=== PATIENT | female | born 1935 | race Caucasian/White ===

== ENCOUNTER 2019-06-04 11:21 | Inpatient (IN) | payer MEDICARE ==
[~2019-06-04] VITALS: Ht 167.6 cm; Wt 91.5 kg
[2019-06-04 11:32] VITALS: BP 119/75
[2019-06-04 12:17] LABS: ABSOLUTE BASOPHILS 0.1 thou/uL (0.0-0.2); ABSOLUTE LYMPHOCYTES 0.6 thou/uL (0.8-5.3); ABSOLUTE MONOCYTES 0.7 thou/uL (0.0-1.2); ABSOLUTE NEUTROPHILS 5.6 thou/uL (1.6-8.1); BASOPHILS 0.9 %; EOSINOPHILS 0.1 %; HEMATOCRIT 34.2 % (37.0-47.0); HEMOGLOBIN 11.1 gm/dL (12.0-15.0); LYMPHOCYTES 8.3 %; MCHC 32.3 g/dL (28.0-37.0); MCV 80.3 fL (80.0-100.0); MONOCYTES 10.2 %; NUCLEATED RBCS 0 /100WBC; PLATELET COUNT* 171 thou/uL (150-400); POLYS 80.5 %; RBC 4.26 mil/uL (4.20-5.00); RDW-CV 15.5 % (10.5-14.5); WBC 6.9 thou/uL (4.0-11.0)
[2019-06-04 12:22] LABS: CALCIUM 9.5 mg/dL (8.5-10.1); CREATININE 1.4 mg/dL (0.6-1.3); POTASSIUM 3.7 mmol/L (3.5-5.1)
[2019-06-04 12:32] LABS: ALBUMIN 3.5 g/dL (3.4-5.0); TOTAL BILIRUBIN 0.8 mg/dL (<0.1-1.0); TOTAL PROTEIN 6.8 g/dL (6.4-8.2)
[2019-06-04 12:35] LABS: APTT 26.2 Seconds (25.0-31.3); INR 1.2; PROTIME 12.7 Seconds (9.20-11.50)
[2019-06-04 16:05] VITALS: BP 125/81
[2019-06-04 17:31] VITALS: BP 125/92
[2019-06-05] VITALS (7 sets, daily range): BP systolic 114–150; BP diastolic 55–76
[2019-06-05 08:01] LABS: HEMATOCRIT 34.4 % (37.0-47.0); HEMOGLOBIN 10.9 gm/dL (12.0-15.0); MCH 25.3 pg (26.0-34.0); MCHC 31.6 g/dL (28.0-37.0); MCV 79.8 fL (80.0-100.0); MPV 9.3 fl. (7.2-11.1); RBC 4.31 mil/uL (4.20-5.00); RDW-CV 15.6 % (10.5-14.5); WBC 7.6 thou/uL (4.0-11.0)
[2019-06-05 08:09] LABS: CALCIUM 9.4 mg/dL (8.5-10.1); CREATININE 1.3 mg/dL (0.6-1.3); POTASSIUM 3.8 mmol/L (3.5-5.1)
--- NOTE | 2019-06-05 08:43 | EKG ---
[place] [address] ELECTROCARDIOGRAM REPORT Name: DOTTIE CROWLEY Room: [address] IN .R.#: [id number] Admission: 06/04/19 Attend Phys: Lakisha Mendoza Discharge: 06/07/19 Date of : 39 Report #: [id number] THIS REPORT FOR: //name// [facility] ED Test Date: 2019-06-04 Test Time: 11:37:57 Pat Name: DOTTIE CROWLEY Department: Room: [facility] Gender: F Leather Sponger: alvaro : 1935 Requested By: Itz Velasquez Order Number: [id number] MD: Rich Osborne Measurements Intervals [place] Rate: 182 P: MD: QRS: 57 QRSD: 71 T: 220 QT: 256 QTc: 446 Interpretive Statements Atrial fibrillation with rapid V-rate Low voltage, precordial leads Anteroseptal infarct, old Minimal ST depression Nonspecific T abnormalities, lateral leads Baseline wander in lead(s) V4,V6 No previous ECG available for comparison Electronically Signed On 06-05-2019 8:42:58 CDT by Rich Osborne [email or web address] <ELECTRONICALLY SIGNED> By: Rich Osborne MD, FACC 06/05/19 0842 1137 1137 Rich Osborne MD, FACC /EPI
[2019-06-05 09:26] LABS: CHOLESTEROL 127 mg/dL (<200); HDL CHOLESTEROL 39 mg/dL (>40); LDL CHOLESTEROL 79 mg/dL (<100); TC:HDL 3.3 Ratio (Not establshd); TRIGLYCERIDE 45 mg/dL (<150); VLDL 9 mg/dL (<40)
[2019-06-05 09:27] LABS: SERUM ASSESSMENT Clear
--- NOTE | 2019-06-05 15:03 | 2DMMODE ---
[place] [address] 2 D/M-MODE ECHOCARDIOGRAM Name: DOTTIE CROWLEY Room: [address] IN [facility]#: [id number] Admission: 06/04/19 Attend Phys: Lakisha neal Sa Discharge: 06/07/19 Date of : 39 Date of Service: 06/05/19 1503 Report #: [id number] THIS REPORT FOR: //name// APPROVED REPORT Study performed: 06/05/2019 11:12:26 EXAM: Comprehensive 2D, Doppler, and color-flow Echocardiogram Patient Location: In-Patient Room #: [facility] Status: routine BSA: 2.01 HR: 78 bpm BP: 133/72 mmHg Rhythm: NSR Other Information Study Quality: Good Indications Atrial Fibrillation Dyspnea 2D Dimensions IVSd: 8.50 (7-11mm) LVOT Diam: 17.66 (18-24mm) LVDd: 44.62 mm PWd: 8.05 (7-11mm) Ascending Ao: 32.97 (22-36mm) LVDs: 32.47 (25-40mm) Aortic Root: 28.18 mm Volumes Left Atrial Volume (Systole) LA ESV Index: 49.60 mL/m2 Aortic Valve AoV Peak Edgar.: 1.80 m/s AO Peak Gr.: 12.94 mmHg LVOT Max P.12 mmHg AO Mean Gr.: 6.38 mmHg LVOT Mean P.29 mmHg LVOT Max V: 1.33 m/s AO V2 VTI: 30.55 cm LVOT Mean V: 0.83 m/s UZMA (VTI): 1.79 cm2 LVOT V1 VTI: 22.30 cm TDI Medial E' Edgar.: 0.09 m/s Lateral E' Edgar.: 0.16 m/[place] [address] 2 D/M-MODE ECHOCARDIOGRAM Name: DOTTIE CROWLEY Room: [address] IN [facility].#: [id number] Admission: 06/04/19 Attend Phys: Lakisha neal Sa Discharge: 06/07/19 Date of : 39 Date of Service: 06/05/19 1503 Report #: [id number] Pulmonary Valve PV Peak Edgar.: 1.01 m/s PV Peak Gr.: 4.04 mmHg Tricuspid Valve RAP Estimate: 15.00 mmHg TR Peak Gr.: 27.54 mmHg RVSP: 42.00 mmHg PA Pressure: 42.00 mmHg Left Ventricle The left ventricle is normal size. There is normal LV segmental wall motion. There is normal left ventricular wall thickness. Left ventricular systolic function is normal. LVEF is 55-60%. This study is not technically sufficient to allow evaluation of the LV diastolic function due to atrial fibrillation. Right Ventricle Right ventricle is mildly dilated. The right ventricular systolic function is normal. Atria Left atrium is severely dilated. Right atrium is severely dilated. Aortic Valve The aortic valve is normal in structure. No aortic regurgitation is present. There is no aortic valvular stenosis. Mitral Valve There is mitral annular calcification. Mild mitral regurgitation. No evidence of mitral valve stenosis. Tricuspid Valve The tricuspid valve is normal in structure. Moderate tricuspid regurgitation. Moderate pulmonary hypertension. The RVSP is 40-45 mmHg. Pulmonic Valve The pulmonary valve is normal in structure. Trace pulmonic regurgitation. Great Vessels The aortic root is normal in size. IVC is dilated and collapses <50% with [place] [address] 2 D/M-MODE ECHOCARDIOGRAM Name: DOTTIE CROWLEY Room: [address]#: [id number] Admission: 06/04/19 Attend Phys: Lakisha clement los Sa Discharge: 06/07/19 Date of : 39 Date of Service: 06/05/19 1503 Report #: [id number] There is no pericardial effusion. Left pleural effusion. <Conclusion> The left ventricle is normal size. There is normal left ventricular wall thickness. Left ventricular systolic function is normal. LVEF is 55-60%. Right ventricle is mildly dilated. Left atrium is severely dilated. Right atrium is severely dilated. Mild mitral regurgitation. Moderate tricuspid regurgitation. Moderate pulmonary hypertension. The RVSP is 40-45 mmHg. IVC is dilated and collapses <50% with inspiration. Left pleural effusion. <ELECTRONICALLY SIGNED> By: Rich Osborne MD, FACC 06/05/19 1503 1503 1503 Rich Osborne MD, FACC /INF
[2019-06-06] VITALS (7 sets, daily range): BP systolic 107–150; BP diastolic 46–84
[2019-06-06 05:51] LABS: CALCIUM 8.4 mg/dL (8.5-10.1); CREATININE 1.2 mg/dL (0.6-1.3); POTASSIUM 3.7 mmol/L (3.5-5.1)
[2019-06-06 06:29] LABS: INR 1.2; PROTIME 12.1 Seconds (9.20-11.50)
--- NOTE | 2019-06-06 15:00 | EKG ---
[place] [address] ELECTROCARDIOGRAM REPORT Name: DOTTIE CROWLEY Room: [address] IN .R.#: [id number] Admission: 06/04/19 Attend Phys: Lakisha Mendoza Discharge: 06/07/19 Date of : 39 Report #: [id number] THIS REPORT FOR: //name// [facility] Test Date: 2019-06-05 Test Time: 17:32:19 Pat Name: DOTTIE CROWLEY Department: Room: [address] Gender: F Curriculum Consultant: ROGER : 1935 Requested By: Tamica Seals Order Number: [id number] Wm MD: Fermin Morales Measurements Intervals [place] Rate: 82 P: [place]: QRS: 78 QRSD: 81 T: 220 QT: 459 QTc: 536 Interpretive Statements Atrial fibrillation Low voltage, precordial leads Nonspecific T abnormalities, inferior leads Prolonged QT interval Compared to ECG 06/04/2019 11:37:57 Prolonged QT interval now present Myocardial infarct finding no longer present ST (T wave) deviation no longer present T-wave abnormality still present Electronically Signed On 06-06-2019 15:00:31 CDT by Fermin Morales [email or web address] <ELECTRONICALLY SIGNED> By: Fermin Morales MD, FACC 06/06/19 1500 31 173 Fermin Morales MD, FACC /EPI
--- NOTE | 2019-06-06 15:14 | EKG ---
[place] [address] ELECTROCARDIOGRAM REPORT Name: DOTTIE CROWLEY Room: [address] IN M.R.#: [id number] Admission: 06/04/19 Attend Phys: Lakisha Mendoza Discharge: 06/07/19 Date of : 39 Report #: [id number] THIS REPORT FOR: //name// [facility] Test Date: 2019-06-06 Test Time: 13:32:19 Pat Name: DOTTIE CROWLEY Department: Room: [address] Gender: F Umbrella Cutter: : 1935 Requested By: Tamica Seals Order Number: [id number] Reading MD: Fermin Morales Measurements Intervals [place] Rate: 92 P: [place]: QRS: 59 QRSD: 59 T: 242 QT: 413 QTc: 511 Interpretive Statements Atrial fibrillation Borderline T abnormalities, diffuse leads Prolonged QT interval Compared to ECG 06/04/2019 11:37:57 Prolonged QT interval now present Myocardial infarct finding no longer present ST (T wave) deviation no longer present T-wave abnormality still present Electronically Signed On 06-06-2019 15:14:08 CDT by Fermin Morales [email or web address] <ELECTRONICALLY SIGNED> By: Fermin Morales MD, FACC 06/06/19 1514 1332 1332 Fermin Morales MD, FACC /EPI
[2019-06-07 00:30] VITALS: BP 137/93
[2019-06-07 04:28] VITALS: BP 136/69
[2019-06-07 05:16] LABS: HEMATOCRIT 31.4 % (37.0-47.0); HEMOGLOBIN 9.8 gm/dL (12.0-15.0); MCHC 31.1 g/dL (28.0-37.0); MCV 80.4 fL (80.0-100.0); MPV 9.2 fl. (7.2-11.1); RBC 3.9 mil/uL (4.20-5.00); RDW-CV 15.8 % (10.5-14.5); WBC 6.9 thou/uL (4.0-11.0)
[2019-06-07 05:29] LABS: CALCIUM 8.7 mg/dL (8.5-10.1); POTASSIUM 3.4 mmol/L (3.5-5.1)
[2019-06-07 08:00] VITALS: BP 115/79
[2019-06-07] MEDS ORDERED: DILTIAZEM 24HR180 M1 PO (10:32)
[2019-06-07] MEDS ORDERED: LASIX 40 MG TAB40 M1 PO (10:32)
[2019-06-07] MEDS ORDERED: POTASSIUM CHLORIDE 20 MEQ PO (10:32)
[2019-06-07] MEDS ORDERED: SORINE 80 MG TA80 M1 PO (10:32)
[2019-06-07] MEDS ORDERED: ELIQUIS5 MG PO (10:32)
[2019-06-07 12:16] VITALS: BP 135/76
[2019-06-07] MEDS ORDERED: K-DUR 20 MEQ T20 MEQ PO (15:40)
[2019-06-07 15:52] VITALS: BP 142/79
--- NOTE | 2019-06-07 16:58 | EKG ---
[place] [address] ELECTROCARDIOGRAM REPORT Name: DOTTIE CROWLEY Room: [address] IN .R.#: [id number] Admission: 06/04/19 Attend Phys: Lakisha Mendoza Discharge: 06/07/19 Date of : 39 Report #: [id number] THIS REPORT FOR: //name// [facility] Test Date: 2019-06-07 Test Time: 11:04:00 Pat Name: DOTTIE CROWLEY Department: Room: [address] Gender: F Foxpro Developer: : 1935 Requested By: Tamica Seals Order Number: [id number] Wm MD: Rich Osborne Measurements Intervals [place] Rate: 90 P: ID: QRS: 98 QRSD: 80 T: 256 QT: 427 QTc: 523 Interpretive Statements Atrial fibrillation Right axis deviation Anteroseptal infarct, old Borderline repolarization abnormality Prolonged QT interval Compared to ECG 06/06/2019 13:32:19 Right-axis deviation now present Myocardial infarct finding now present T-wave abnormality no longer present Electronically Signed On 06-07-2019 16:58:13 CDT by Rich Osborne [email or web address] <ELECTRONICALLY SIGNED> By: Rich Osborne MD, FACC 06/07/19 1658 1104 1104 Rich Osborne MD, FACC /EPI
== END 2019-06-07 16:43 | disposition home health service (06) | DRG 175 ==
LOC: EDBD 11:21 → M.ERS 11:21 → M.2W 13:00 → M.TBA-ER 13:00 → M.2W 18:26
PROVIDERS: Family Medicine; Internal Medicine; Registered Nurse; ADMIT Family Medicine
DX: I26.99 Other pulmonary embolism without acute cor pulmonale (principal); R65.11 Systemic inflammatory response syndrome (SIRS) of non-infectious origin with acute organ dysfunction; I50.33 Acute on chronic diastolic (congestive) heart failure; N17.0 Acute kidney failure with tubular necrosis; J96.01 Acute respiratory failure with hypoxia; D68.59 Other primary thrombophilia; I48.91 Unspecified atrial fibrillation; E07.9 Disorder of thyroid, unspecified; E66.9 Obesity, unspecified; Z68.32 Body mass index [BMI] 32.0-32.9, adult; Z79.899 Other long term (current) drug therapy

== ENCOUNTER 2019-09-13 16:18 | Inpatient (IN) | payer OTHER ==
[~2019-09-13] VITALS: Ht 170.2 cm; Wt 73.9 kg
--- NOTE | ~2019-09-13 | PROC ---
[address] [address] PROCEDURE REPORT Name: DOTTIE CROWLEY Room: [address] IN M.R.#: [id number] Admission: 09/13/19 Attend Phys: Claudy Zavala Discharge: 09/18/19 Date of : 39 Report #: [id number] THIS REPORT FOR: //name// cc: Carla Garsia Maggie M. DO ~ THIS REPORT FOR: //name// For GI report, please see the Provation report in Perceptive 7 content. By: [facility]2Medical Records Staff [facility] /HORACIO
--- NOTE | ~2019-09-13 | CON ---
[address] [address] CONSULTATION Name: DOTTIE CROWLEY Room: [address] IN .R.#: [id number] Admission: 09/13/19 Attend Phys: Claudy Zavala Discharge: Date of : 39 Report #: [id number] THIS REPORT FOR: //name// cc: Carla Garsai Maggie M. DO ~ THIS REPORT FOR: //name// CC: CARLA Reyes DICTATED BY: Vera Ceja TOWER HOIST OPERATOR DATE OF SERVICE: 09/14/2019 Please note at the time of this dictation, the patient was seen and physically examined by myself. REASON FOR CONSULTATION: Acute anemia. HISTORY OF PRESENT ILLNESS: This is an 83-year-old female who presented to the Emergency Room yesterday morning with chief complaints of having some midsternal, nonradiating chest pain that started yesterday morning. At the time that she was seen this morning, she denies any chest discomfort or any abdominal pain at this time. The patient states she has been experiencing some nausea, especially in the a.m. upon arising and this has been ongoing for some time. She states she has had no vomiting or any decrease in her appetite. She states her bowels move daily, soft and formed, and she has not noticed any black stools. The patient has never had any upper or lower scopes done. The patient recently was hospitalized in May for increased shortness of breath. She was found to have a PE on the right and was in rapid atrial fib. We will get Cardiology okay prior to proceeding. The patient also has been on Eliquis since that time, along was taking two Aleve daily, which she had been taking prior to all of that for some time. ALLERGIES: No known drug allergies. MEDICATIONS FROM HOME: Eliquis, sotalol, diltiazem, and Lasix. PAST MEDICAL HISTORY: Significant for AFib, hypertension, and hyperlipidemia. PAST SURGICAL HISTORY: Negative. FAMILY HISTORY: Negative. SOCIAL HISTORY: Denies any alcohol, tobacco, or illegal drug use. REVIEW OF SYSTEMS: Twelve-point review of systems is essentially negative except what is mentioned in the HPI. PHYSICAL EXAMINATION: VITAL SIGNS: Temperature 36.1, pulse 116, respirations 16, blood pressure 116/62. HEART: Regular rate and rhythm. LUNGS: Diminished, but clear. ABDOMEN: Soft, positive bowel sounds in all 4 quadrants with no masses or tenderness noted. LABORATORY DATA: Hemoglobin on admission was 5.3, she is 7.7 after 2 units of blood, white count 5.3, platelets 250. BUN is 38, creatinine is 1.5 with a GFR of 33. PT is 13.6, INR 1.3. TIBC is 378, percentage sat is 8, ferritin was 10, and her BNP was 3482. IMPRESSION: 1. Wqozo-nt-bkkxwos anemia. 2. Nausea. 3. Nonsteroidal anti-inflammatory drug use. 4. Two Aleve daily for years. 5. Chest pain, resolved. 6. Anticoagulant therapy, Eliquis. 7. Atrial fibrillation and pulmonary embolism in 05/2019. PLAN: 1. EGD today with Dr. Lomeli. 2. We will get approval from Cardiology LATASHA. 3. Protonix drip. 4. CBC and CMP in the a.m. 5. Further recommendations will be made after the procedure has been performed. 6. The patient has never had a screening colon. If above is negative, we will likely need a colonoscopy. Thank you for allowing us to participate in this patient's care. Please do not hesitate to call with any questions in regard to this consult. By: 1028 [id number] Lomeli MD /cathleen
--- NOTE | ~2019-09-13 | EKG ---
[place] [address] ELECTROCARDIOGRAM REPORT Name: DOTTIE CROWLEY Room: [address] IN [facility]#: [id number] Admission: 09/13/19 Attend Phys: Moises Jaramillo Discharge: Date of : 39 Date of Service: 09/13/191621 Report #: [id number] THIS REPORT FOR: cc: Carla Garsia Maggie M. DO Epiphany, Epiphany MD ~ THIS REPORT FOR: //name// [facility] ED Test Date: 2019-09-13 Test Time: 16:22:21 Pat Name: DOTTIE CROWLEY Department: Room: [facility] Gender: F Gis Analyst: SMITH : 1935 Requested By: Tim Bowman Order Number: [id number] MD: Measurements Intervals [place] Rate: 115 P: [place]: QRS: 47 QRSD: 62 T: QT: 364 QTc: 504 Interpretive Statements Atrial fibrillation Probable anterior infarct, age indeterminate Prolonged QT interval No previous ECG available for comparison [email or web address] By: 21 21 Epiphany Epiphany, [place] /CARITO
[~2019-09-13 16:18] MED LIST: DILTIAZEM 24HR180 M1 PO; ELIQUIS5 MG PO; K-DUR 20 MEQ T20 MEQ PO; LASIX 40 MG TAB40 M1 PO; POTASSIUM CHLORIDE 20 MEQ PO; SORINE 80 MG TA80 M1 PO
[2019-09-13 16:24] VITALS: BP 102/60
[2019-09-13 17:10] LABS: ABSOLUTE BASOPHILS 0.1 thou/uL (0.0-0.2); ABSOLUTE EOSINOPHILS 0.1 thou/uL (0.0-0.7); ABSOLUTE MONOCYTES 0.9 thou/uL (0.0-1.2); ABSOLUTE NEUTROPHILS 3.3 thou/uL (1.6-8.1); BASOPHILS 1.9 %; EOSINOPHILS 1.8 %; LYMPHOCYTES 17.9 %; MCH 22.6 pg (26.0-34.0); MCHC 30.8 g/dL (28.0-37.0); MCV 73.3 fL (80.0-100.0); MONOCYTES 16.6 %; MPV 8.1 fl. (7.2-11.1); NUCLEATED RBCS 0 /100WBC; PLATELET COUNT* 250 thou/uL (150-400); POLYS 61.8 %; RBC 2.34 mil/uL (4.20-5.00); RDW-CV 17.4 % (10.5-14.5); WBC 5.3 thou/uL (4.0-11.0)
[2019-09-13 17:18] LABS: APTT 27.6 Seconds (25.0-31.3); INR 1.3; PROTIME 13.6 Seconds (9.20-11.50)
[2019-09-13 17:21] LABS: HEMATOCRIT 17.1 % (37.0-47.0); HEMOGLOBIN 5.3 gm/dL (12.0-15.0)
[2019-09-13 17:22] LABS: CALCIUM 8.4 mg/dL (8.5-10.1); CREATININE 1.5 mg/dL (0.6-1.3); POTASSIUM 4.2 mmol/L (3.5-5.1)
[2019-09-13 17:32] LABS: ALBUMIN 3.5 g/dL (3.4-5.0); MAGNESIUM 2.4 mg/dL (1.8-2.4); TOTAL BILIRUBIN 0.5 mg/dL (<0.1-1.0); TOTAL PROTEIN 6.5 g/dL (6.4-8.2)
[2019-09-13 17:51] LABS: PLATELET ESTIMATE ADEQUATE
[2019-09-13 17:52] LABS: ANISOCYTOSIS 1+; HYPOCHROMASIA 1+; POIKILOCYTOSIS 1+
[2019-09-13 18:49] VITALS: BP 105/66
[2019-09-13 20:30] VITALS: BP 116/62
[2019-09-13 21:32] VITALS: BP 103/61; BP 106/64; BP 108/65; BP 99/52
[2019-09-14 01:56] LABS: HEMATOCRIT 18.9 % (37.0-47.0)
[2019-09-14 03:11] VITALS: BP 104/64; BP 105/66; BP 120/62; BP 125/67
[2019-09-14 08:00] VITALS: BP 123/74
[2019-09-14 09:41] LABS: HEMATOCRIT 22.6 % (37.0-47.0); HEMOGLOBIN 7.7 gm/dL (12.0-15.0)
[2019-09-14 16:28] VITALS: BP 123/72
--- NOTE | 2019-09-14 16:46 | CON ---
[address] [address] CONSULTATION Name: DOTTIE CROWLEY Room: [address] IN M.R.#: [id number] Admission: 09/13/19 Attend Phys: Claudy Zavaal Discharge: Date of : 39 Report #: [id number] THIS REPORT FOR: //name// cc: Carla Garsia Maggie M. DO ~ THIS REPORT FOR: //name// CC: Dr. Minerva Jaramillo DATE OF SERVICE: 09/14/2019 CARDIOLOGY CONSULTATION HISTORY OF PRESENT ILLNESS: The patient is an 83-year-old single white female who I was asked to see in the hospital today because of atrial fibrillation. The patient presented here in May with shortness of breath and leg swelling. She was seen by my nurse practitioner, Tamica Seals. She was noted to be hypoxic. Chest x-ray showed vascular congestion. She was found to be in atrial fibrillation. It was felt that she had diastolic heart failure since her ejection fraction was normal by echocardiogram. She was noted to have evidence of a pulmonary embolus. She was placed on sotalol, but did not convert to sinus rhythm. She was placed on diltiazem for rate control. She was eventually discharged in May to [facility]. Her discharge diagnoses included pulmonary embolus and atrial fibrillation. She was noted to have a thyroid mass. DVT was ruled out by venous duplex scan. She was at [facility] for a period of time and then discharged home. According to the son, she stays fairly active. She has been taking her medications. She was brought back to the Emergency Room yesterday by ambulance. She complained of discomfort in her chest. It is not related to exertion or meals. No radiation of the pain. No diaphoresis. She denied any bleeding. I was asked to see her for further evaluation and treatment. She denied any shortness of breath. She has felt irregular heartbeat, occasional lightheadedness. CURRENT MEDICATIONS: At home included Eliquis, sotalol, diltiazem, Lasix, and potassium. ALLERGIES: She had no known drug allergies. FAMILY HISTORY: Her grandfather had a heart attack. SOCIAL HISTORY: , lives with son in [place]. No smoking or alcohol abuse. REVIEW OF SYSTEMS: She has had no history of stroke. She is very hard of hearing. No history of asthma, peptic ulcer disease, bleeding, liver disease, kidney disease, cancer or psychiatric illness. PHYSICAL EXAMINATION: GENERAL: Revealed an elderly frail appearing female, lying in bed. She appeared in no distress. VITAL SIGNS: Blood pressure was 110/60, pulse is 110. She is afebrile. HEENT: She was anicteric. Conjunctivae pink. Mucous membranes appear dry. NECK: Veins are nondistended. CHEST: Clear to auscultation. CARDIOVASCULAR: Irregular, tachycardia. ABDOMEN: Soft. EXTREMITIES: Had 1+ pitting edema up to mid tibial area. Dorsalis pedis pulse 1+ bilaterally. SKIN: Cool and dry. NEUROLOGIC: Nonfocal. RADIOLOGICAL DATA: Her ECG showed atrial fibrillation, rapid ventricular response rate, nonspecific T-wave changes. Her workup, she had an echocardiogram last May that showed a normal ejection fraction of 60%, biatrial enlargement, right ventricular appeared dilated, moderate tricuspid insufficiency, moderate pulmonary hypertension. Her chest x-ray done yesterday showed cardiomegaly, clear lung gonzalez, some atelectasis. LABORATORY DATA: Sodium 141, BUN 38, creatinine 1.5. Liver function studies were normal. Troponin 0.06. BNP 3482. Her TSH 2.3, ferritin 10, percent saturation of 8. Her hemoglobin was 7.7, it was 11 in May. IMPRESSION AND RECOMMENDATIONS: 1. Persistent atrial fibrillation. I would discontinue sotalol and increase diltiazem to control the ventricular response rate. I would hold Eliquis at this time because of anemia. 2. Iron deficiency anemia. Agree with need for endoscopy. The patient appears to have no cardiac contraindication to endoscopy at this time. 3. Chest pain. No evidence of acute myocardial infarction. Recommend no further cardiac evaluation at this time. 4. Chronic kidney disease. 5. Degenerative joint disease. 6. Lower extremity edema. Suspect venous insufficiency. The patient is on Lasix. <ELECTRONICALLY SIGNED> By: Luigi Napoles MD, FACC 09/14/19 1646 1056 1248Dafabián Napoles MD, FACC /nt
[2019-09-14 18:40] LABS: HEMOGLOBIN 7.9 gm/dL (12.0-15.0); MCH 24.7 pg (26.0-34.0); MCHC 31.6 g/dL (28.0-37.0); MCV 78.1 fL (80.0-100.0); MPV 8.8 fl. (7.2-11.1); RBC 3.2 mil/uL (4.20-5.00); RDW-CV 18.3 % (10.5-14.5); WBC 6.1 thou/uL (4.0-11.0)
[2019-09-14 20:42] VITALS: BP 118/55
[2019-09-15] VITALS: BP 126/66
[2019-09-15 04:00] VITALS: BP 123/57
[2019-09-15 06:18] LABS: ALBUMIN 3.3 g/dL (3.4-5.0); CALCIUM 8.3 mg/dL (8.5-10.1); CREATININE 1.4 mg/dL (0.6-1.3); MAGNESIUM 2.4 mg/dL (1.8-2.4); POTASSIUM 3.9 mmol/L (3.5-5.1); TOTAL BILIRUBIN 0.8 mg/dL (<0.1-1.0); TOTAL PROTEIN 6.4 g/dL (6.4-8.2)
[2019-09-15 07:32] LABS: HEMATOCRIT 25.9 % (37.0-47.0); HEMOGLOBIN 8.2 gm/dL (12.0-15.0); MCHC 31.7 g/dL (28.0-37.0); MCV 78.9 fL (80.0-100.0); MPV 8.8 fl. (7.2-11.1); RBC 3.28 mil/uL (4.20-5.00); RDW-CV 18.5 % (10.5-14.5); WBC 8.8 thou/uL (4.0-11.0)
[2019-09-15 08:00] VITALS: BP 123/72
[2019-09-15 12:00] VITALS: BP 105/57
[2019-09-15 16:00] VITALS: BP 104/54
[2019-09-15 20:10] VITALS: BP 110/63
[2019-09-16] VITALS (7 sets, daily range): BP systolic 104–127; BP diastolic 60–78
[2019-09-16 06:01] LABS: HEMATOCRIT 21.5 % (37.0-47.0)
[2019-09-16 06:32] LABS: HEMOGLOBIN 6.9 gm/dL (12.0-15.0)
[2019-09-16 16:28] LABS: HEMATOCRIT 25.5 % (37.0-47.0); HEMOGLOBIN 8.3 gm/dL (12.0-15.0)
[2019-09-17] VITALS (7 sets, daily range): BP systolic 124–144; BP diastolic 53–77
[2019-09-17 07:05] LABS: HEMATOCRIT 23.9 % (37.0-47.0); HEMOGLOBIN 7.7 gm/dL (12.0-15.0); MCH 25.2 pg (26.0-34.0); MCHC 32.4 g/dL (28.0-37.0); MPV 8.2 fl. (7.2-11.1); RBC 3.06 mil/uL (4.20-5.00); RDW-CV 18.5 % (10.5-14.5); WBC 5.8 thou/uL (4.0-11.0)
[2019-09-17 07:13] LABS: CALCIUM 8.2 mg/dL (8.5-10.1); CREATININE 1.1 mg/dL (0.6-1.3); MAGNESIUM 2.3 mg/dL (1.8-2.4); POTASSIUM 3.9 mmol/L (3.5-5.1)
[2019-09-18 04:18] VITALS: BP 111/57
[2019-09-18 07:30] VITALS: BP 127/67
[2019-09-18 07:33] LABS: HEMATOCRIT 22.5 % (37.0-47.0); HEMOGLOBIN 7.3 gm/dL (12.0-15.0); MCH 25.5 pg (26.0-34.0); MCHC 32.3 g/dL (28.0-37.0); MCV 78.9 fL (80.0-100.0); MPV 8.1 fl. (7.2-11.1); RBC 2.86 mil/uL (4.20-5.00); RDW-CV 19.3 % (10.5-14.5); WBC 4.8 thou/uL (4.0-11.0)
[2019-09-18 07:44] LABS: POTASSIUM 3.8 mmol/L (3.5-5.1)
[2019-09-18] MEDS ORDERED: DIGOXIN125 MCG PO ×2 (11:35→12:39)
[2019-09-18] MEDS ORDERED: FUROSEMIDE 40 M40 MG PO (11:38)
[2019-09-18 11:52] VITALS: BP 127/67
[2019-09-18 12:27] VITALS: BP 127/67
[2019-09-18] MEDS ORDERED: CEFDINIR300 MG PO (12:39)
[2019-09-18] MEDS ORDERED: CARDIZEM CD 18180 M3 PO (13:00)
[2019-09-18] MEDS ORDERED: DILTIAZEM ER240 MG PO (13:05)
[2019-09-18 13:49] VITALS: BP 127/67
--- NOTE | 2019-09-18 16:07 | PATH ---
[facility] [address] [place] [address] PATHOLOGY RPT PROCEDURE Name: SULEMA CROWLEY Room: [address] IN M.R.#: [id number] Admission: 09/13/19 Date of : 39 Discharge: 09/18/19 Report #: [id number] Path Case #: [id number] [facility] Accession Number: [id number] . 01 Material submitted: . esophagus - ESOPHAGEAL BIOPSY . 01 Clinical history: . None provided. . 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 See comment. (MIRA:maria; 09/17/2019) R 09/18/2019 1530 Local . 02 Comment: Properly controlled GMS stain performed on A1 is positive for fungal organisms, compatible with Olivia species and seen within fragmenting squamouis epithelium. (MIRA:maria; 09/17/2019) . 02 Electronically signed: . Alexis Soriano MD, Pathologist NPI- [id number] . 01 Gross description: . Received in formalin labeled "Sulema Crowley, esophageal biopsy rule out Olivia" is a 1.0 x 0.2 x 0.1 cm aggregate of salcido-brown soft tissue fragments. The specimen is submitted entirely in A1. [place] 09/15/2019[place] [facility] 09/15/2019 0946 Local . 02 Pathologist provided ICD-10: K20.9 . 02 CPT . 713982, 420350 Specimen Comment: A courtesy copy of this report has been sent to [phone] Specimen Comment: [phone], Specimen Comment: Report sent to , and Performed at: [address] [id number] MD Haja Albarado MD Phone: [phone] Performed at: [address] [place] [address] PATHOLOGY RPT PROCEDURE Name: SULEMA CROWLEY Room: [address] IN M.R.#: [id number] Admission: 09/13/19 Date of : 39 Discharge: 09/18/19 Report #: [id number] Path Case #: [id number] [address] KERA Nuno [id number] MD Alexis Soriano MD Phone: [phone]
== END 2019-09-18 15:04 | disposition home health service (06) | DRG 377 ==
LOC: M.ERS 16:18 → M.2W 17:54 → M.TBA-ER 17:54 → M.2W 19:16
PROVIDERS: Emergency Medicine Emergency Medical Services; Family Medicine; Internal Medicine; Internal Medicine Cardiovascular Disease; ADMIT Internal Medicine
DX: K31.811 Angiodysplasia of stomach and duodenum with bleeding (principal); N17.0 Acute kidney failure with tubular necrosis; I50.30 Unspecified diastolic (congestive) heart failure; I13.0 Hypertensive heart and chronic kidney disease with heart failure and stage 1 through stage 4 chronic kidney disease, or unspecified chronic kidney disease; I48.19 Other persistent atrial fibrillation; D50.9 Iron deficiency anemia, unspecified; E78.5 Hyperlipidemia, unspecified; N18.9 Chronic kidney disease, unspecified; M19.90 Unspecified osteoarthritis, unspecified site; I87.8 Other specified disorders of veins; K44.9 Diaphragmatic hernia without obstruction or gangrene; Z86.711 Personal history of pulmonary embolism; Z79.899 Other long term (current) drug therapy; Z79.1 Long term (current) use of non-steroidal anti-inflammatories (NSAID); Z79.01 Long term (current) use of anticoagulants; Z82.49 Family history of ischemic heart disease and other diseases of the circulatory system

== ENCOUNTER 2021-04-17 23:15 | Inpatient (IN) | payer OTHER ==
[~2021-04-17] VITALS: Ht 162.6 cm; Wt 65.4 kg
[~2021-04-17 23:15] MED LIST changes: +CARDIZEM CD 18180 M3 PO; +CEFDINIR300 MG PO; +DIGOXIN125 MCG PO; +DILTIAZEM ER240 MG PO; +FUROSEMIDE 40 M40 MG PO
[2021-04-17 23:21] VITALS: BP 120/87
[2021-04-17 23:42] LABS: ABSOLUTE LYMPHOCYTES 0.6 thou/uL (0.8-5.3); ABSOLUTE MONOCYTES 1.3 thou/uL (0.0-1.2); ABSOLUTE NEUTROPHILS 10.4 thou/uL (1.6-8.1); BASOPHILS 0.2 %; HEMATOCRIT 45.7 % (37.0-47.0); HEMOGLOBIN 14.6 gm/dL (12.0-15.0); LYMPHOCYTES 5.1 %; MCH 29.6 pg (26.0-34.0); MCV 92.3 fL (80.0-100.0); MONOCYTES 10.8 %; MPV 10.1 fl. (7.2-11.1); NUCLEATED RBCS 0 /100WBC; PLATELET COUNT* 141 thou/uL (150-400); POLYS 83.9 %; RBC 4.95 mil/uL (4.20-5.00); RDW-CV 17.5 % (10.5-14.5); WBC 12.4 thou/uL (4.0-11.0)
[2021-04-17 23:45] LABS: ANION GAP 15 mmol/L (7-16); BUN 40 mg/dL (7-18); CALCIUM 8.9 mg/dL (8.5-10.1); CHLORIDE 106 mmol/L (98-107); CO2 21 mmol/L (21-32); CREATININE 1.4 mg/dL (0.6-1.3); GLUCOSE 161 mg/dL (70-99); SODIUM 142 mmol/L (136-145)
[2021-04-17 23:54] LABS: APTT 28.3 Seconds (25.0-31.3); INR 1.4; PROTIME 14.2 Seconds (9.20-11.50)
[2021-04-17 23:56] LABS: ALBUMIN 3.6 g/dL (3.4-5.0); ALKALINE PHOSPHATASE 72 U/L (46-116); NT-PRO BRAIN NAT PEPTIDE > 35000 pg/mL (<300); SGOT 27 U/L (15-37); SGPT 35 U/L (30-65); TOTAL BILIRUBIN 1.7 mg/dL (<0.1-1.0); TOTAL PROTEIN 6.7 g/dL (6.4-8.2)
[2021-04-18] VITALS (10 sets, daily range): BP systolic 111–123; BP diastolic 53–84
--- NOTE | 2021-04-18 08:44 | NUR ---
PT ADMITTED TO ROOM 214 DURING PREP MANAGER; AFIB WITH RVR (OTHER VITALS STABLE), DROWSY, DISORIENTED TO TIME, 2LO2 NC, PIC TAKEN OF WOUND, BEDREST ORDERED. SHE IS ABLE TO COMMUNICATE HER NEEDS TO STAFF WITH SOME DIFFICULTY; SHE IS [id number], DROWSY AND A LITTLE CONFUSED. SHE HAS DENIED THE NEED FOR PAIN MEDICATION UP TO 0700 THIS MORNING. SHE HAS BEEN NPO SINCE ARRIVAL FOR CARDIOLOGY CONSULT TODAY.
--- NOTE | 2021-04-18 10:59 | NUR ---
ASSUMED PT CARE AT 0730. PT IS A&OX4, COOPERATIVE AND FRIENDLY. ASSESSMENT COMPLETED. MEDICATIONS ADMINISTERED ORDERED. NEW ORDER TO DISCHARGE PT TO HOME. PT VERBALIZES DISCHARGE ORDERS. FRIEND HERE T6O TRANSPORT PT TO HOME VIA CAR AT APPROX 1100. HEART MONITOR REMOVED AND IV'S DC'D. ALL BELONGINGS WITH PT.
--- NOTE | 2021-04-18 15:07 | NUR ---
ASSUMED PT CARE AT 0730. PT IS A&OX X3-4 AND PALA. PT IS PLEASANT, COOPERATIVE AND SLEEPY. PT WITH CHRONIC AFIB AND CARDIZEM DRIP STOPPED AT APPROX 12NOON. PT HEART RATE NOW IN THE 70-80'S. NEW MEDICATIONS ORDERED BY CARDIOLOGY AND ADMINISTERED ORDERED. PT IS RESTING OFTEN TODAY AND EASILY AROUSED. PT WITH POOR APPETITE, SUPPLEMENT OFFERED. SAFETY MEASURES IN PLACE, CALL LIGHT IN PLACE.
[2021-04-18 18:04] LABS: URINE BLOOD 1+ (Negative); URINE CLARITY CLEAR; URINE COLOR DARK YELLOW; URINE GLUCOSE-RANDOM NEGATIVE (Negative); URINE KETONES NEGATIVE (Negative); URINE LEUKOCYTES-REFLEX TRACE (Negative); URINE NITRITE-REFLEX NEGATIVE (Negative); URINE PROTEIN 1+ (Negative); URINE SPECIFIC GRAVITY >= 1.030 (1.005-1.030)
[2021-04-18 18:06] LABS: URINE BILIRUBIN 1+ (Negative)
[2021-04-18 18:07] LABS: ICTOTEST (BILI CONFIRMATORY) Negative (Negative)
[2021-04-18 18:20] LABS: BACTERIA-REFLEX 1-9 Few /HPF (None Seen); CASTS None Seen /LPF (None Seen); CRYSTALS None Seen /LPF (None Seen); MUCUS 0-3 Light strn/LPF (None Seen); SQUAMOUS 4-10 Moderate /LPF (0-3); URINE RBC 3-10 Few /HPF (0-2); URINE WBC-REFLEX 0-5 Rare /HPF (0-5)
[2021-04-19] VITALS (7 sets, daily range): BP systolic 119–148; BP diastolic 71–87
[2021-04-19 03:50] LABS: HEMATOCRIT 46.8 % (37.0-47.0); HEMOGLOBIN 14.8 gm/dL (12.0-15.0); MCH 29.7 pg (26.0-34.0); MCHC 31.7 g/dL (28.0-37.0); MCV 93.7 fL (80.0-100.0); NUCLEATED RBCS 0 /100WBC; PLATELET COUNT* 129 thou/uL (150-400); RBC 4.99 mil/uL (4.20-5.00); RDW-CV 17.8 % (10.5-14.5); WBC 10.7 thou/uL (4.0-11.0)
[2021-04-19 04:35] LABS: CALCIUM 8.3 mg/dL (8.5-10.1); CREATININE 0.7 mg/dL (0.6-1.3); POTASSIUM 4.9 mmol/L (3.5-5.1)
[2021-04-19 05:52] LABS: ABSOLUTE LYMPHOCYTES 0.3 thou/uL (0.8-5.3); ABSOLUTE MONOCYTES 0.6 thou/uL (0.0-1.2); ABSOLUTE NEUTROPHILS 9.7 thou/uL (1.6-8.1); ANISOCYTOSIS 1+; PLATELET ESTIMATE DECREASED
--- NOTE | 2021-04-19 07:53 | NUR ---
PT IS ABLE TO COMMUNICATE HER NEEDS TO STAFF WITH MINOR DIFFICULTY; SHE IS [id number] AND HAS ANXIETY. SHE HAS DENIED THE NEED FOR PAIN MEDICATION UP TO 0700 TODAY. PT USING BEDPAN, BUT IS STILL OCCASIONALLY INCONTINENT.
--- NOTE | 2021-04-19 09:07 | NUR ---
Nutrition: Pt admitted with afib/RVR. H/o CHF. Seen for pressure ulcer on sacrum. Heart healthy diet. Per RN, pt has poor appetite. RD ordered Ensure MAX protein for added nutrition. Wt: 144#. Albumin 3.6. +BM. Consider mild risk.
--- NOTE | 2021-04-19 11:35 | CON ---
[address] [address] CONSULTATION Name: CARLINEDOTTIE Luis Angel Room: [address] IN M.R.#: [id number] Admission: 04/18/21 Attend Phys: Pat Turcios MD Discharge: Date of : 39 Report #: [id number] THIS REPORT FOR: cc: Carla Garsia,Rich Perez MD FACC ~ cc: Luigi Napoles MD FACC, Carla Garsia DO DATE OF CONSULTATION: 04/18/2021 CARDIOLOGY CONSULT INDICATION: Volume overload and atrial fibrillation with rapid ventricular response rate. HISTORY OF PRESENT ILLNESS: The patient is an 85-year-old white female with history of chronic atrial fibrillation and diastolic heart failure. She presented to the hospital with increased volume overload and atrial fibrillation with rapid ventricular response rate. She denies chest pain. She denies shortness of breath. She is without other cardiac complaint at this time. Digoxin level is subtherapeutic. Primary complaint was weakness. PAST MEDICAL HISTORY: 1. Chronic atrial fibrillation. 2. History of pulmonary embolus. 3. Hypertension. 4. Chronic diastolic heart failure. 5. DJD. 6. Chronic renal insufficiency. HOME MEDICATIONS: Digoxin 0.125 mg p.o. daily, diltiazem 240 mg daily, furosemide 40 mg p.r.n., potassium chloride 20 mEq with furosemide. ALLERGIES: None known. FAMILY HISTORY: Noncontributory. SOCIAL HISTORY: The patient lives with her son in [place]. There is no alcohol or tobacco use. PHYSICAL EXAMINATION: VITAL SIGNS: Blood pressure 116/64, pulses are in the 120s and they are irregularly irregular. GENERAL: This is a thin, pleasant elderly female in no distress[place] [address] CONSULTATION Name: DOTTIE CROWLEY Room: [address]#: [id number] Admission: 04/18/21 Attend Phys: Pat Turcios MD Discharge: Date of : 37 Report #: [id number] HEENT: Head is normocephalic, atraumatic. Extraocular muscles intact. Mucous membranes moist. NECK: Shows no jugular venous distention. CHEST: Reveals clear lung gonzalez. CARDIAC: Reveals an irregularly irregular rhythm that is slightly tachycardic. I do not appreciate obvious gallop or murmur. ABDOMEN: Reveals a soft abdomen with positive bowel sounds. EXTREMITIES: Shows chronic skin changes from edema and 2+ edema to the knees bilaterally. LABORATORY DATA: Reviewed. Sodium 142, potassium 4.0, chloride 106, bicarbonate 21, BUN 40, creatinine 1.4, serum glucose 161. LFTs within normal limits. High sensitivity troponin 24. NT-proBNP greater than 35,000. Coags are fairly unremarkable. Digoxin level less than 0.2. White blood cell count 12.4, hemoglobin 14.6, platelet count 141,000. Chest x-ray shows basilar consolidation and pleural effusions. Lower extremity venous Doppler shows no evidence of deep venous thrombosis on the right side, short segment of DVT involving the left profunda vein. VQ scan was indeterminate, probability for pulmonary embolus. IMPRESSION AND RECOMMENDATIONS: 1. Atrial fibrillation with rapid ventricular response rate. Digoxin level subtherapeutic. Continue diltiazem at current dose. Bolus with IV digoxin for rate control. We would recommend anticoagulation with Eliquis. 2. Hypertension, adequately controlled. 3. Acute on chronic diastolic heart failure. Start IV Lasix daily. Follow labs in a.m. 4. Deep venous thrombosis. Recommend chronic anticoagulation. <ELECTRONICALLY SIGNED> By: Rich Osborne MD, FACC 04/19/21 1135 0936 [id number] Osborne MD, FACC /nt
--- NOTE | 2021-04-19 16:20 | NUR ---
ASSUMED PT CARE AT A 0730. PT IS ALERT AND ORIENTED X2. HEART RATE 120'-160'S. PHYSICIAN NOTIFIED AND NEW ORDERS IMPLEMENTED. HEART RATE NOW IN THE 80-90'S. PT O2 SATS IN LOWER 80'S THIS AM. NOTIFIED RESPIRATORY AND DR. ISLAS. PT NOW ON HIGH FLOW AT 14L AND MAINTAINING SATS IN THE MID 90'S. PT SON AND SISTER HERE VISITING AND INFORMED OF PT STATUS. MEDICATIONS ADMINISTERED ORDERED. SAFETY MEASURES IN PLACE. PT ATE BETTER TODAY AND HAD OUTPUT X5 CLEAR YELLOW URINE.
[2021-04-20] VITALS (7 sets, daily range): BP systolic 128–136; BP diastolic 64–88
[2021-04-20 04:30] LABS: ABSOLUTE LYMPHOCYTES 0.4 thou/uL (0.8-5.3); ABSOLUTE MONOCYTES 1.2 thou/uL (0.0-1.2); ABSOLUTE NEUTROPHILS 10.8 thou/uL (1.6-8.1); BASOPHILS 0.1 %; EOSINOPHILS 0.1 %; HEMATOCRIT 46.5 % (37.0-47.0); HEMOGLOBIN 14.8 gm/dL (12.0-15.0); LYMPHOCYTES 3.1 %; MCH 29.4 pg (26.0-34.0); MCHC 31.8 g/dL (28.0-37.0); MCV 92.7 fL (80.0-100.0); MONOCYTES 9.7 %; MPV 9.1 fl. (7.2-11.1); NUCLEATED RBCS 0 /100WBC; PLATELET COUNT* 161 thou/uL (150-400); RBC 5.01 mil/uL (4.20-5.00); RDW-CV 17.2 % (10.5-14.5); WBC 12.4 thou/uL (4.0-11.0)
[2021-04-20 04:40] LABS: ALBUMIN 2.8 g/dL (3.4-5.0); CALCIUM 8.4 mg/dL (8.5-10.1); CREATININE 0.9 mg/dL (0.6-1.3); TOTAL BILIRUBIN 1.6 mg/dL (<0.1-1.0)
[2021-04-20 04:43] LABS: POTASSIUM 3.2 mmol/L (3.5-5.1)
--- NOTE | 2021-04-20 05:22 | NUR ---
PT IS ABLE TO COMMUNICATE HER NEEDS TO STAFF WITH MINOR DIFFICULTY; SHE IS CONFUSED AT TIMES AND IS QUITE [id number]. SHE HAS DENIED THE NEED FOR PAIN MEDICATION UP TO THIS TIME. PT'S O2 NEEDS REMAIN HIGH AT THIS TIME.
[2021-04-20 13:10] LABS: BE 4.8 mmol/L (-2 to +3); PCO2 42.7 mmHg (35.0-45.0); PO2 62.4 mmHg (75.0-100.0); pH 7.455 (7.340-7.450)
--- NOTE | 2021-04-20 16:31 | NUR ---
ASSUMED PT CARE AT 0730. PT IS A&OX3 WITH SOME FORGETFULLNESS. PT AFIB AND CONTINUED THIS AM TO RUN TACHY 110-160'S. NEW ORDER RECIEVED AND PT NOW 80-90'S. O2 SATS WERE IN UPPER 80'S RESPIRATORY AND PHYSICIAN NOTIFIED. PT NOW ON HHF AT 15L AND O2 SATS. PT FED BREAKFAST AND ATE 75%. PT REQUEST BEDPAN NEEDED. MEDICATIONS ADMINISTERED ORDERED. SON HERE VISITING. PT STARTED ON ANTIBIOTIC.
[2021-04-21 04:00] VITALS: BP 129/65
[2021-04-21 04:28] LABS: CALCIUM 8.2 mg/dL (8.5-10.1); CREATININE 0.9 mg/dL (0.6-1.3); POTASSIUM 3.6 mmol/L (3.5-5.1)
[2021-04-21 09:00] VITALS: BP 126/48
--- NOTE | 2021-04-21 09:25 | NUR ---
WOUND NURSE: PATIENT WITHOUT COMPLEXT WOUND TO SACROCOCCYGEAL AREA. RECOMMEND USE OF Z-GUARD MOISTURE BARRIER PASTE. PROVIDED TO NURSE CARING FOR PATIENT. WOUND NURSE CONSULT NOT INDICATED FOR THIS PATIENT AT THIS TIME.
[2021-04-21 12:00] VITALS: BP 133/60
--- NOTE | 2021-04-21 14:53 | NUR ---
Pt on bipap. Spoke with son at bedside. Pt resides home with son and dtr. Independent, kids help as needed. Pt uses a walker for mobility. No home o2. Hx of HH. Hx of skilled at [facility]. Goal is home at dc, pending. Cards following. Therapies to see. Pulm consulted, repeat ABGs
[2021-04-21 16:00] VITALS: BP 115/49
--- NOTE | 2021-04-21 16:11 | NUR ---
THIS RN RECEIVED CARE OF THIS PT AT 0700 THIS MORNING. PT HARD TO WAKE UP UPON ASSESSMENT. VSS. PT ON THE BIPAP TO MAINTAIN OXYGEN SATURATION ABOVE 90%, LUNGS ARE DIMINISHED THROUGHOUT. PT MONITOR SHOWS AFIB, CONTROLLED WITH MEDICATION. PT HAS NORMOACTIVE BSX4, ABD S,R,NT. PT IS CONTINENT TO INCONTINENT OF BLADDER. PT NEEDS TO BE SAT UP AND FED BUT PT WILL EAT IF ENCOURAGED. PT WILL HELP WITH TURNS WHEN ENCOURAGED WELL. PT EXTREMELY WEAK. OLD IV PULLED OUT, NEW IV PLACED. WILL CONTINUE TO MONITOR AND MAKE CHANGES NEEDED.
[2021-04-21 20:00] VITALS: BP 133/59
[2021-04-22] VITALS: BP 135/66
[2021-04-22 04:00] VITALS: BP 134/66
[2021-04-22 07:15] LABS: HEMOGLOBIN 16.4 gm/dL (12.0-15.0); MCH 30.1 pg (26.0-34.0); MCHC 32.8 g/dL (28.0-37.0); MCV 91.7 fL (80.0-100.0); MPV 8.5 fl. (7.2-11.1); NUCLEATED RBCS 0 /100WBC; PLATELET COUNT* 162 thou/uL (150-400); RBC 5.45 mil/uL (4.20-5.00); RDW-CV 16.5 % (10.5-14.5); WBC 11.2 thou/uL (4.0-11.0)
[2021-04-22 07:27] LABS: ALBUMIN 2.6 g/dL (3.4-5.0); CALCIUM 8.7 mg/dL (8.5-10.1); CREATININE 0.9 mg/dL (0.6-1.3); MAGNESIUM 2.4 mg/dL (1.8-2.4); POTASSIUM 4.2 mmol/L (3.5-5.1); TOTAL BILIRUBIN 1.5 mg/dL (<0.1-1.0); TOTAL PROTEIN 6.7 g/dL (6.4-8.2)
[2021-04-22 08:00] VITALS: BP 117/69
[2021-04-22 08:35] LABS: ABSOLUTE LYMPHOCYTES 0.1 thou/uL (0.8-5.3); ABSOLUTE MONOCYTES 0.1 thou/uL (0.0-1.2); PLATELET ESTIMATE ADEQUATE
[2021-04-22 11:40] VITALS: BP 129/72
--- NOTE | 2021-04-22 11:55 | NUR ---
Therapies to see today. Pt off bipap on HF. Anticipate dc in a few days. CM following for dispo plan
[2021-04-22 16:00] VITALS: BP 136/79
[2021-04-22 16:04] LABS: BF RBC <1000 /mm3; TOTAL CELL COUNT 340 /mm3
[2021-04-22 16:23] LABS: CLARITY CLEAR; TOTAL VOLUME 1450 ml
[2021-04-22 17:11] LABS: BF LYMPHOCYTES 24 %; BF MONOCYTES 30 %; BF POLYS 46 %; SOURCE PLEURAL FLUID
[2021-04-22 17:12] LABS: BF TISSUE 25 /100 WBC
[2021-04-22 19:45] VITALS: BP 136/73
--- NOTE | 2021-04-22 22:17 | CON ---
[address] [address] CONSULTATION Name: CROWLEYDOTTIE K Room: [address] IN M.R.#: [id number] Admission: 04/18/21 Attend Phys: Pat Turcios MD Discharge: Date of : 37 Report #: [id number] THIS REPORT FOR: cc: Carla Garsia Maggie M. DO Pervez, Adeel MD ~ DATE OF CONSULTATION: 04/21/2021 REQUESTING PHYSICIAN: James Zuniga MD INDICATION FOR CONSULTATION: Acute hypoxemic respiratory failure. HISTORY OF PRESENT ILLNESS: This is an 85-year-old female with past medical history as mentioned below, this does include a history of chronic atrial fibrillation. I am not aware of this patient being on anticoagulation prior to this admission. The patient, at this time, presented with shortness of breath as well as lower extremity weakness as well as swelling of lower extremities. She at this time is not able to provide a meaningful history. History is therefore obtained from the patient's nurse as well as the chart. Apparently, she has been found to have a DVT during this admission. She has been diuresed and she is fluid overloaded, although this appears to be better. There has been an increase in her oxygen needs from 2 liters nasal cannula. She is not requiring high-flow oxygen to maintain O2 saturation. O2 saturation apparently can be maintained with a heated high-flow nasal cannula or BiPAP, but the patient keeps on taking these off. Therefore, she currently is on a nonrebreather mask, is saturating in the mid 90s. She was drowsy, arousable at the time of my evaluation. She has been evaluated by Speech and was allowed oral intake, although she does appear to be high risk for aspiration. The last available chest x-ray is from 2 days ago and it does show bilateral pleural effusions, right greater than left. I suspect that there are some infiltrates, which are obscured by the pleural effusion on the right side as well. The patient is on anticoagulation with Eliquis. She is unable to provide a further history or review of systems. PAST MEDICAL HISTORY: Chronic atrial fibrillation, pulmonary emboli, hypertension, chronic diastolic heart failure, degenerative joint disease, chronic kidney disease as mentioned on the record; however, her creatinine is normal. She was on anticoagulation in the past and this was discontinued previously due to a GI bleed. The last available echocardiogram is from 2019 and shows a left ventricular ejection fraction of 55-60% with a pulmonary artery systolic of 42. SOCIAL HISTORY: There is no known history of smoking, ethanol abuse [place] [address] CONSULTATION Name: DOTTIE CROWLEY Room: [address] IN ..#: [id number] Admission: 04/18/21 Attend Phys: Pat Turcios MD Discharge: Date of : 37 Report #: [id number] CURRENT MEDICATIONS: List in [employer] reviewed. [facility] MED[facility]. ALLERGIES: No known drug allergies. FAMILY HISTORY: There is no pertinent family history. PHYSICAL EXAMINATION: GENERAL: She is drowsy. She is arousable. She did not respond to questions. VITAL SIGNS: Has a pulse of 89 and a blood pressure of 115/49. She is saturating 95% on a nonrebreather mask. Respiratory rate is 20. She is afebrile with a temperature of 36.2. HEENT: Head is normocephalic and atraumatic. Throat shows no erythema, but throat examination is limited due to limited patient cooperation. NECK: Does not show raised JVP, asymmetry, mass or lymph nodes. CHEST: Symmetrical expansion on inspection and palpation. On auscultation; however, breath sounds are decreased at bilateral bases, more at the right lung base. HEART: Irregular. There is a minimal systolic murmur. ABDOMEN: Soft and nontender. EXTREMITIES: Lower extremities show 1+ edema. Skin changes are consistent with reduction in edema recently. There is no obvious calf tenderness. NEUROLOGIC: Moves all extremities bilaterally equally and spontaneously with no focal deficit identified. LABORATORY DATA: The patient's chest x-ray as well as perfusion scan and venous Dopplers are in [facility] and these are reviewed. Lab work also in [facility] reviewed. ASSESSMENT AND PLAN: 1. Acute hypoxemic respiratory failure. The patient appears to be fluid overloaded; however, at first glance, it appears to me that this may be better. We will repeat a chest x-ray now and see where we stand. It is possible that the patient at times is aspirating and may have infiltrates in the right lung. There are also bilateral pleural effusions on the last chest x-ray, more on the right. At this time, we will continue to titrate oxygen. The patient currently is requiring a nonrebreather mask as she is pulling off other means of administration of oxygen. 2. Bilateral pleural effusions, right greater than left. Last chest x-ray is 2 days old. I will verify this by obtaining a chest x-ray now. However, if this pleural effusion on the right side has not resolved, then the plan is to proceed with thoracentesis tomorrow. I therefore discontinued Eliquis for now and ordered 1 dose of Lovenox full dose for tonight. We will plan to restart oral [address] [address] CONSULTATION Name: DOTTIE CROWLEY Room: [address] IN ..#: [id number] Admission: 04/18/21 Attend Phys: Pat Turcios MD Discharge: Date of : 37 Report #: [id number] anticoagulation after thoracentesis tomorrow. 3. Pulmonary infiltrates/high aspiration risk. She is on Zosyn. I agree with Zosyn. We will continue. We will broaden antibiotic coverage by adding doxycycline. We will give her a probiotic Lactinex. I discussed with the patient's RN. I recommended strict aspiration precautions. If there is doubt, then I would not recommend allowing her to take orally. Must be fully sitting up and fully awake to take orally. I will also request speech therapist to reevaluate tomorrow. We will give 2 doses of Solu-Medrol overnight as well and start her on Brovana. 4. Acute on chronic diastolic congestive heart failure. Last available echo is from 2019. If there is no more recent echo available, then I favor obtaining a repeat echo. Cardiology is on the case. I will therefore defer to Cardiology. 5. Deep vein thrombosis and suspected acute pulmonary emboli. She has DVT on venous Dopplers, the perfusion scan is also suspicious of pulmonary emboli. I agree with long-term anticoagulation unless contraindications develop. Per records, she has had a GI bleed in the past, and therefore, had to be taken off anticoagulation at some point. She has previously been seen by GI, I do not have details available. If there is a significant likelihood that she may need to be taken off anticoagulation in the future, then may consider placing an IVC filter. Otherwise, the primary therapy is with anticoagulation. 6. Chronic atrial fibrillation. See discussion above. 7. History of gastrointestinal bleed. Recommend continuing with PPI long-term. Plan for now is to continue anticoagulation long-term. 8. Clostridium difficile prophylaxis. Lactinex. Thanks for this consultation. <ELECTRONICALLY SIGNED> By: Jose Jose MD 04/22/21 2217 1726 1918Acaio Jose MD /nt
[2021-04-23 00:50] VITALS: BP 126/70
--- NOTE | 2021-04-23 01:11 | NUR ---
ASSUMED CARE OF PT AT 1900. PT IS VERY SLEEPY AND LETHARGIC. PT CONFUSED. VSS. PERRLA. NO COMPLAINTS OF PAIN. PT IS IN A FIB ON THE TELEMETRY. PT IS RESTING COMFORTABLY IN BED. RESPIRATIONS ARE EVEN AND NONLABORED. WILL CONTINUE TO MONITOR PT.
[2021-04-23 04:00] VITALS: BP 127/75
[2021-04-23 04:29] LABS: ABSOLUTE LYMPHOCYTES 0.3 thou/uL (0.8-5.3); ABSOLUTE MONOCYTES 0.6 thou/uL (0.0-1.2); ABSOLUTE NEUTROPHILS 14.5 thou/uL (1.6-8.1); BASOPHILS 0.1 %; HEMATOCRIT 47.7 % (37.0-47.0); HEMOGLOBIN 15.6 gm/dL (12.0-15.0); LYMPHOCYTES 1.7 %; MCH 29.6 pg (26.0-34.0); MCHC 32.7 g/dL (28.0-37.0); MCV 90.5 fL (80.0-100.0); MPV 8.5 fl. (7.2-11.1); NUCLEATED RBCS 0 /100WBC; PLATELET COUNT* 178 thou/uL (150-400); POLYS 94.2 %; RBC 5.27 mil/uL (4.20-5.00); RDW-CV 16.1 % (10.5-14.5); WBC 15.4 thou/uL (4.0-11.0)
[2021-04-23 04:39] LABS: ALBUMIN 2.1 g/dL (3.4-5.0); CALCIUM 8.8 mg/dL (8.5-10.1); MAGNESIUM 2.1 mg/dL (1.8-2.4); POTASSIUM 3.9 mmol/L (3.5-5.1); TOTAL BILIRUBIN 1.2 mg/dL (<0.1-1.0); TOTAL PROTEIN 5.8 g/dL (6.4-8.2)
[2021-04-23 08:00] VITALS: BP 144/63
--- NOTE | 2021-04-23 08:05 | NUR ---
WOUND NURSE: (LATE ENTRY FOR 04/22/21 @ 10:00 AM) PATIENT WAS SEEN TO ADDRESS LINEAR FISSURE ON SACRUM MEASURING 5.0 X 0.2 X 0.1 CM. PRESENTS WITH PINK NONGRANULATING TISSUE AND NO ACTIVE DRAINAGE. CLEANSED WITH SOAP AND WATER, RINSED, THEN PATTED DRY. APPLIED SKIN PREP TO PERIWOUND. APPLIED EXUDERM (CUT TO FIT), THEN SECURED WITH SURESITE TRANSPARENT DRESSING. PATIENT NOT TEACHEABLE AT TIME OF DRESSING CHANGE.
--- NOTE | 2021-04-23 11:07 | NUR ---
The patient is alert. Able to make most needs known. A fib on the monitor. Call light within reach.
[2021-04-23 12:39] VITALS: BP 136/65
--- NOTE | 2021-04-23 13:35 | 2DMMODE ---
[place] [address] 2 D/M-MODE ECHOCARDIOGRAM Name: DOTTIE CROWLEY Room: [address] IN [facility]#: [id number] Admission: 04/18/21 Attend Phys: Pat Turcios, Discharge: Date of : 37 Date of Service: 04/23/21 1334 Report #: [id number] THIS REPORT FOR: cc: Carla Garsia Maggie M. DO Liston, Michael J. MD [facility] ~ APPROVED REPORT Study performed: 04/23/2021 10:33:06 EXAM: Comprehensive 2D, Doppler, and color-flow Echocardiogram Patient Location: In-Patient Room #: [facility] Status: routine BSA: 1.70 HR: 85 bpm BP: 127/75 mmHg Rhythm: Atrial Fibrillation Other Information Study Quality: Good Indications Atrial Fibrillation Dyspnea 2D Dimensions IVSd: 10.89 (7-11mm) LVOT Diam: 18.78 (18-24mm) LVDd: 41.93 mm PWd: 11.30 (7-11mm) Ascending Ao: 29.89 (22-36mm) LVDs: 33.34 (25-40mm) Aortic Root: 28.18 mm Volumes Left Atrial Volume (Systole) LA ESV Index: 54.10 mL/m2 Aortic Valve AoV Peak Edgar.: 1.60 m/s AO Peak Gr.: 10.29 mmHg LVOT Max P.43 mmHg AO Mean Gr.: 5.37 mmHg LVOT Mean P.68 mmHg LVOT Max V: 1.27 m/s AO V2 VTI: 25.72 cm LVOT Mean V: 0.73 m/s UZMA (VTI): 2.10 cm2 LVOT V1 VTI: 19.49 [place] [address] 2 D/M-MODE ECHOCARDIOGRAM Name: DOTTIE CROWLEY Room: [address] IN [facility].#: [id number] Admission: 04/18/21 Attend Phys: Pat Turcios, Discharge: Date of : 37 Date of Service: 04/23/21 1334 Report #: [id number] TDI Medial E' Edgar.: 0.12 m/s Lateral E' Edgar.: 0.12 m/s Pulmonary Valve PV Peak Edgar.: 0.96 m/s PV Peak Gr.: 3.71 mmHg Tricuspid Valve RAP Estimate: 5.00 mmHg TR Peak Gr.: 27.08 mmHg RVSP: 32.00 mmHg PA Pressure: 32.00 mmHg Left Ventricle The left ventricle is normal size. Mild global hypokinesis. There is normal left ventricular wall thickness. Left ventricular systolic function is mildly decreased. LVEF is 45-50%. This study is not technically sufficient to allow evaluation of the LV diastolic function due to atrial fibrillation. Right Ventricle Right ventricle is mildly dilated. The right ventricular systolic function is normal. Atria Left atrium is severely dilated. Right atrium is severely dilated. Aortic Valve The aortic valve is normal in structure. No aortic regurgitation is present. There is no aortic valvular stenosis. Mitral Valve There is mitral annular calcification. Mild mitral regurgitation. No evidence of mitral valve stenosis. Tricuspid Valve The tricuspid valve is normal in structure. Mild tricuspid regurgitation. Mild pulmonary hypertension. The RVSP is 35-40 mmHg. Pulmonic Valve The pulmonary valve is normal in structure. Mild pulmonic regurgitation[place] [address] 2 D/M-MODE ECHOCARDIOGRAM Name: DOTTIE CROWLEY Room: [address] IN [facility].#: [id number] Admission: 04/18/21 Attend Phys: Pat Turcios, Discharge: Date of : 39 Date of Service: 04/23/21 1334 Report #: [id number] The aortic root is normal in size. IVC is normal in size and collapses >50% with inspiration. Pericardium There is no pericardial effusion. Left pleural effusion. <Conclusion> The left ventricle is normal size. There is normal left ventricular wall thickness. Left ventricular systolic function is mildly decreased. LVEF is 45-50%. Mild global hypokinesis. Right ventricle is mildly dilated. Left atrium is severely dilated. Right atrium is severely dilated. Mild mitral regurgitation. Mild tricuspid regurgitation. Mild pulmonary hypertension. The RVSP is 35-40 mmHg. IVC is normal in size and collapses >50% with inspiration. Left pleural effusion. <ELECTRONICALLY SIGNED> By: Rich Osborne MD, FACC 04/23/21 1334 1334 1334 Rich Osborne MD, FACC /INF
--- NOTE | 2021-04-23 14:01 | NUR ---
Pt on 10L. Echo today. Sandra yesterday. Therapies to attempt to see. CM following for dispo plan.
[2021-04-23 16:40] VITALS: BP 113/61
[2021-04-23 20:00] VITALS: BP 125/64
--- NOTE | 2021-04-23 20:00 | NUR ---
RECEIVED REPORT AND ASSUMED CARE OF PT, ASSESSMENT COMPLETED. PT LETHARGIC, AWAKENS BUT IMMEDIATELY BACK TO SLEEP. O2 ON AT 5L/HFC, HOB ELEVATED. NO SOA NOTED. TELEMETRY ON SHOWING A-FIB. WILL CONT TO MONITOR AND ASSIST NEEDED.
[2021-04-24 03:00] VITALS: BP 139/64
[2021-04-24 06:13] VITALS: BP 142/72
[2021-04-24 08:00] VITALS: BP 147/78
[2021-04-24 10:59] VITALS: BP 137/64
[2021-04-24 14:10] LABS: BODY FLUID LDH 138 IU/L (()); BODY FLUID PROTEIN 2.6 g/dL (())
[2021-04-24 15:46] VITALS: BP 122/72
--- NOTE | 2021-04-24 15:53 | NUR ---
Pt on 5L. Therapies to eval. Flores yesterday. Anticipate dc in a few days. Pt will likely need skilled, cm following for dispo plans.
[2021-04-24 21:00] VITALS: BP 135/63
--- NOTE | 2021-04-24 21:00 | NUR ---
RECEIVED REPORT AND ASSUMED CARE OF PT AT 1930, ASSESSMENT COMPLETED AT THIS TIME. PT LETHARGIC BUT AWAKENS EASILY, ABLE TO CARRY ON CONVERSATION. TOOK HS MEDS IN APPLESAUCE BUT STILL CHEWS THEM UP. TELEMETRY ON SHOWING A FIB. NO COMPLAINTS VOICED. WILL CONT TO MONITOR AND ASSIST NEEDED.
[2021-04-25 02:41] VITALS: BP 111/72
[2021-04-25 03:50] VITALS: BP 136/63
[2021-04-25 08:03] LABS: ABSOLUTE LYMPHOCYTES 0.4 thou/uL (0.8-5.3); ABSOLUTE MONOCYTES 0.9 thou/uL (0.0-1.2); ABSOLUTE NEUTROPHILS 11.6 thou/uL (1.6-8.1); BASOPHILS 0.2 %; HEMATOCRIT 46.6 % (37.0-47.0); HEMOGLOBIN 15.3 gm/dL (12.0-15.0); LYMPHOCYTES 3.1 %; MCH 29.7 pg (26.0-34.0); MCHC 32.9 g/dL (28.0-37.0); MCV 90.2 fL (80.0-100.0); MPV 8.5 fl. (7.2-11.1); NUCLEATED RBCS 0 /100WBC; PLATELET COUNT* 165 thou/uL (150-400); POLYS 89.7 %; RBC 5.17 mil/uL (4.20-5.00); RDW-CV 16.1 % (10.5-14.5); WBC 12.9 thou/uL (4.0-11.0)
[2021-04-25 08:05] VITALS: BP 123/70
[2021-04-25 08:30] LABS: CALCIUM 8.1 mg/dL (8.5-10.1); MAGNESIUM 1.7 mg/dL (1.8-2.4); PHOSPHORUS* 2.3 mg/dL (2.5-4.9); POTASSIUM 3.7 mmol/L (3.5-5.1)
[2021-04-25 12:00] VITALS: BP 126/63
[2021-04-25 16:00] VITALS: BP 140/69
[2021-04-25 19:35] VITALS: BP 117/66
[2021-04-26] VITALS: BP 130/69
[2021-04-26 04:00] VITALS: BP 133/69
[2021-04-26 04:13] LABS: HEMATOCRIT 45.4 % (37.0-47.0); MCH 29.6 pg (26.0-34.0); MCV 89.6 fL (80.0-100.0); MPV 8.6 fl. (7.2-11.1); RBC 5.07 mil/uL (4.20-5.00); RDW-CV 15.8 % (10.5-14.5); WBC 11.3 thou/uL (4.0-11.0)
[2021-04-26 04:14] LABS: CALCIUM 8.1 mg/dL (8.5-10.1); CREATININE 1.1 mg/dL (0.6-1.3); POTASSIUM 3.5 mmol/L (3.5-5.1)
--- NOTE | 2021-04-26 05:18 | NUR ---
PATIENT ALERT AND ORIENTED X 4. QUITE TUSCARORA. PLEASANT AND COOPERATIVE WITH CARES. VITAL SIGNS STABLE ON O2 AT 3L/MIN. TURNED Q2H. MEDS/ANTIBIOTICS PER ORDER. FALL PRECAUTIONS IN PLACE. CONTINUE TO MONITOR.
[2021-04-26 08:00] VITALS: BP 137/74
[2021-04-26 12:00] VITALS: BP 116/63
[2021-04-26 16:00] VITALS: BP 113/55
[2021-04-26 20:30] VITALS: BP 106/62
[2021-04-27] VITALS: BP 120/67
[2021-04-27 04:00] VITALS: BP 101/71
[2021-04-27 05:02] LABS: CALCIUM 7.9 mg/dL (8.5-10.1); CREATININE 1.2 mg/dL (0.6-1.3); POTASSIUM 3.5 mmol/L (3.5-5.1)
[2021-04-27 05:04] LABS: HEMATOCRIT 46.7 % (37.0-47.0); HEMOGLOBIN 14.8 gm/dL (12.0-15.0); MCH 28.6 pg (26.0-34.0); MCHC 31.6 g/dL (28.0-37.0); MCV 90.6 fL (80.0-100.0); MPV 8.7 fl. (7.2-11.1); RBC 5.16 mil/uL (4.20-5.00); RDW-CV 16.5 % (10.5-14.5); WBC 12.3 thou/uL (4.0-11.0)
--- NOTE | 2021-04-27 05:38 | NUR ---
PATIENT HAS REMAINED ALERT AND ORIENTED X 4, QUITE HARD OF HEARING. RESTING QUIETLY ON HOURLY ROUNDS. REFUSED REGULAR TURNS. PUREWICK IN PLACE WITH ADEQUATE OUTPUT. VITAL SIGNS STABLE. A-FIB ON THE MONITOR. MEDS/ANTIBIOTICS PER ORDERS. CONTINUE TO MONITOR.
[2021-04-27 08:00] VITALS: BP 127/73
[2021-04-27 12:00] VITALS: BP 121/0
--- NOTE | 2021-04-27 13:14 | NUR ---
REFERRAL PACKET FAXED TO [facility] [phone] AWAITING APPROVAL, REFERRAL PACKET FAXED TO [facility] [phone] CM TO CONTINUE TO FOLLOW FOR SAFE D/C PLANNING.
[2021-04-27] MEDS ORDERED: PREDNISONE 20 M20 MG PO (14:25)
[2021-04-27] MEDS ORDERED: DILTIAZEM 24HR300 M2 PO (14:25)
--- NOTE | 2021-04-27 14:28 | NUR ---
ELZBIETA SPK WITH PT AND HER SON, RAZA AT BEDSIDE RE DC PLAN. RAZA WANTS PT TO GO TO [facility]. CM ASKED DC FOREIGN EXCHANGE TRADER MAX TO SENT REF TO [facility] AND [facility]. PER MAX IS IS ACCEPTING OF PT. CM REACHED OUT TO DR. GONZALEZ FOR DC ORDERS.
--- NOTE | 2021-04-27 16:22 | NUR ---
PT DISCHARGED TO [facility] VERONICA, JUAN LUIS PERSON NOTIFIED OF DISCHARGE TO [facility] THIS PM AT 1600 TO 1700. [employer] REMOIVED H[employer] INTACT. PT DISCHARGED BY WHEEL CHAIR CEDENO.
--- NOTE | 2021-04-28 11:07 | PATH ---
[address] [address] PATHOLOGY RPT PROCEDURE Name: DOTTIE CROWLEY Room: [address]#: [id number] Admission: 04/18/21 Date of : 39 Discharge: 04/27/21 Report #: [id number] Path Case #: [id number] Note [facility] Accession Number: [id number] TESTS RESULT FLAG UNITS REF RANGE LAB Clinician Provided Cytology Information No. of containers..01 Other (Miscellaneous) Source: RIGHT PLEURAL FLUID DIAGNOSIS: 02 RIGHT PLEURAL FLUID NEGATIVE FOR MALIGNANT CELLS. REACTIVE MESOTHELIAL CELLS, FEW HISTIOCYTES AND FEW ACUTE AND CHRONIC INFLAMMATORY CELLS. Signed out by: 02 Alexis Soriano MD, Pathologist NPI- [id number] Performed by: 01 Tania Dale, Top Inventory Control Executive ([facility]) Gross description: 01 65ML, MARCELO SALDAÑA, 1 TP /NANCY 04/27/2021 0841 Local FLAG LEGEND: L-Low Normal,H-High Normal,LL-Alert Low,HH-Alert High <-Panic Low,>-Panic High,A-Abnormal,AA-Critical Abnormal Performed at: [address] [place] [address] Mike Griffin MD, [address] [place] [address] [address] [place] [address] Alexis Soriano MD, Specimen Comment: A courtesy copy of this report has been sent to [phone], [phone] Specimen Comment: [phone], Specimen Comment: Report sent to DR. CARDONA, DR SWEENEY / DR BOSWELL Performed at: [address], [place], [place] [id number] MD Mike Griffin MD Phone: [phone]
[2021-04-29 09:25] LABS: SOURCE THORACENTESIS
== END 2021-04-27 17:01 | DRG 177 ==
LOC: M.ERS 23:15 → M.2W 04-18 02:30 → M.TBA-ER 04-18 02:30 → M.2W 04-18 04:00
PROVIDERS: Internal Medicine; Internal Medicine Cardiovascular Disease; Internal Medicine Critical Care Medicine; Personal Emergency Response Attendant; ADMIT Internal Medicine; ATTEND Internal Medicine
PROC: 5A0935A Assistance with Respiratory Ventilation, Less than 24 Consecutive Hours, High Flow/Velocity Cannula (ICD-10-PCS; principal; 2021-04-19)
PROC: 5A0935A Assistance with Respiratory Ventilation, Less than 24 Consecutive Hours, High Flow/Velocity Cannula (ICD-10-PCS; 2021-04-20)
PROC: 5A09357 Assistance with Respiratory Ventilation, Less than 24 Consecutive Hours, Continuous Positive Airway Pressure (ICD-10-PCS; 2021-04-20)
PROC: 5A0935A Assistance with Respiratory Ventilation, Less than 24 Consecutive Hours, High Flow/Velocity Cannula (ICD-10-PCS; 2021-04-21)
PROC: 5A0935A Assistance with Respiratory Ventilation, Less than 24 Consecutive Hours, High Flow/Velocity Cannula (ICD-10-PCS; 2021-04-22)
PROC: 0W993ZZ Drainage of Right Pleural Cavity, Percutaneous Approach (ICD-10-PCS; 2021-04-22)
PROC: 5A09357 Assistance with Respiratory Ventilation, Less than 24 Consecutive Hours, Continuous Positive Airway Pressure (ICD-10-PCS; 2021-04-22)
PROC: 5A0935A Assistance with Respiratory Ventilation, Less than 24 Consecutive Hours, High Flow/Velocity Cannula (ICD-10-PCS; 2021-04-23)
PROC: 5A09357 Assistance with Respiratory Ventilation, Less than 24 Consecutive Hours, Continuous Positive Airway Pressure (ICD-10-PCS; 2021-04-23)
PROC: 5A0935A Assistance with Respiratory Ventilation, Less than 24 Consecutive Hours, High Flow/Velocity Cannula (ICD-10-PCS; 2021-04-26)
DX: J69.0 Pneumonitis due to inhalation of food and vomit (principal); I50.33 Acute on chronic diastolic (congestive) heart failure; J96.01 Acute respiratory failure with hypoxia; I26.99 Other pulmonary embolism without acute cor pulmonale; N17.0 Acute kidney failure with tubular necrosis; I48.20 Chronic atrial fibrillation, unspecified; I13.0 Hypertensive heart and chronic kidney disease with heart failure and stage 1 through stage 4 chronic kidney disease, or unspecified chronic kidney disease; J91.8 Pleural effusion in other conditions classified elsewhere; M19.90 Unspecified osteoarthritis, unspecified site; N18.9 Chronic kidney disease, unspecified; D64.9 Anemia, unspecified; E87.6 Hypokalemia; I80.02 Phlebitis and thrombophlebitis of superficial vessels of left lower extremity; Z20.822 Contact with and (suspected) exposure to COVID-19; Z86.711 Personal history of pulmonary embolism; Z91.19 Patient's noncompliance with other medical treatment and regimen; Z79.899 Other long term (current) drug therapy

== ENCOUNTER 2021-06-04 09:03 | Inpatient (IN) | payer OTHER ==
[~2021-06-04] VITALS: Ht 165.1 cm; Wt 59.0 kg
--- NOTE | ~2021-06-04 | PROC ---
[address] [address] PROCEDURE REPORT Name: DOTTIE CROWLEY Room: [address] IN M.R.#: [id number] Admission: 06/04/21 Attend Phys: Claudy Zavala Discharge: 06/14/21 Date of : 39 Report #: [id number] THIS REPORT FOR: cc: Calra Garsia Maggie M. DO [facility],Medical Records Staff ~ For GI report, please see the Provation report in [employer] 7 content. By: 0649Medical Records Staff SUMAN /HORACIO
[~2021-06-04 09:03] MED LIST changes: +DILTIAZEM 24HR300 M2 PO; +PREDNISONE 20 M20 MG PO
[2021-06-04 09:15] VITALS: BP 110/59
[2021-06-04 09:59] LABS: ABSOLUTE LYMPHOCYTES 0.8 thou/uL (0.8-5.3); ABSOLUTE MONOCYTES 0.9 thou/uL (0.0-1.2); ABSOLUTE NEUTROPHILS 7.1 thou/uL (1.6-8.1); BASOPHILS 0.4 %; EOSINOPHILS 0.2 %; HEMATOCRIT 36.9 % (37.0-47.0); HEMOGLOBIN 12.1 gm/dL (12.0-15.0); LYMPHOCYTES 8.7 %; MCH 29.8 pg (26.0-34.0); MCHC 32.7 g/dL (28.0-37.0); MCV 91.2 fL (80.0-100.0); MONOCYTES 10.4 %; MPV 7.6 fl. (7.2-11.1); NUCLEATED RBCS 0 /100WBC; PLATELET COUNT* 197 thou/uL (150-400); POLYS 80.3 %; RBC 4.05 mil/uL (4.20-5.00); RDW-CV 16.7 % (10.5-14.5); WBC 8.8 thou/uL (4.0-11.0)
[2021-06-04 10:12] LABS: CALCIUM 8.4 mg/dL (8.5-10.1); CREATININE 1.1 mg/dL (0.6-1.3); POTASSIUM 3.6 mmol/L (3.5-5.1)
[2021-06-04 10:13] LABS: ALBUMIN 2.7 g/dL (3.4-5.0); TOTAL BILIRUBIN 0.9 mg/dL (<0.1-1.0)
--- NOTE | 2021-06-04 14:24 | EKG ---
[place] [address] ELECTROCARDIOGRAM REPORT Name: DOTTIE CROWLEY Room: [place] [address] ADM IN [facility]#: [id number] Admission: 06/04/21 Attend Phys: Moises Jaramillo Discharge: Date of : 39 Date of Service: 06/04/2108 Report #: [id number] THIS REPORT FOR: //name// [facility] ED Test Date: 2021-06-04 Test Time: 09:08:37 Pat Name: DOTTIE CROWLEY Department: Room: [facility] Gender: F Fire Officer: NELLY : 1935 Requested By: Cristopher Salcedo Order Number: [id number] MD: Luigi Napoles Measurements Intervals Hobbs Rate: 86 P: MI: QRS: 62 QRSD: 86 T: 241 QT: 346 QTc: 414 Interpretive Statements Atrial fibrillation Repol abnrm suggests ischemia, diffuse leads Compared to ECG 09/13/2019 16:22:21 Early repolarization now present Possible ischemia now present rate has slowed Prolonged QT interval no longer present Electronically Signed On 06-04-2021 14:24:45 CDT by Luigi Napoles [email or web address] <ELECTRONICALLY SIGNED> By: Luigi Napoles MD, FACC 06/04/21 1424 7 0908 Luigi Napoles MD, FACC /EPI
[2021-06-04 17:35] VITALS: BP 118/55
[2021-06-04] MEDS ORDERED: CARDIZEM CD240 M1 PO (19:40)
[2021-06-04] MEDS ORDERED: JANTOVEN4 MG PO (19:51)
[2021-06-04 20:19] LABS: INR 3.9; PROTIME 38.4 Seconds (9.20-11.50)
[2021-06-04 20:39] VITALS: BP 114/61
[2021-06-05] VITALS (7 sets, daily range): BP systolic 96–128; BP diastolic 48–88
[2021-06-05 04:29] LABS: HEMATOCRIT 32.7 % (37.0-47.0); HEMOGLOBIN 10.8 gm/dL (12.0-15.0); MCH 30.1 pg (26.0-34.0); MCHC 32.9 g/dL (28.0-37.0); MCV 91.4 fL (80.0-100.0); MPV 7.9 fl. (7.2-11.1); RBC 3.58 mil/uL (4.20-5.00); RDW-CV 16.9 % (10.5-14.5); WBC 7.4 thou/uL (4.0-11.0)
[2021-06-05 04:51] LABS: CREATININE 1.1 mg/dL (0.6-1.3); POTASSIUM 3.6 mmol/L (3.5-5.1)
[2021-06-05 04:52] LABS: INR 4.5; PROTIME 43.3 Seconds (9.20-11.50)
[2021-06-05 12:02] LABS: URINE BILIRUBIN NEGATIVE (Negative); URINE BLOOD 3+ (Negative); URINE CLARITY SL CLOUDY; URINE COLOR RED; URINE GLUCOSE-RANDOM TRACE (Negative); URINE KETONES NEGATIVE (Negative); URINE LEUKOCYTES 2+ (Negative); URINE NITRITE POSITIVE (Negative); URINE PROTEIN TRACE (Negative)
[2021-06-05 12:04] LABS: CASTS None Seen /LPF (None Seen); CRYSTALS None Seen /LPF (None Seen); MUCUS 0-3 Light strn/LPF (None Seen); SQUAMOUS 0-3 Few /LPF (0-3); URINE RBC >20 Many /HPF (0-2); URINE WBC 6-15 Few /HPF (0-5)
[2021-06-05 12:31] LABS: HEMATOCRIT 35.3 % (37.0-47.0); HEMOGLOBIN 11.6 gm/dL (12.0-15.0); MCHC 32.8 g/dL (28.0-37.0); MCV 91.4 fL (80.0-100.0); MPV 7.8 fl. (7.2-11.1); RBC 3.86 mil/uL (4.20-5.00); RDW-CV 16.9 % (10.5-14.5); WBC 8.4 thou/uL (4.0-11.0)
[2021-06-05 13:32] LABS: % SATURATION 38 % (20-39); IRON 50 ug/dL (50-175)
--- NOTE | 2021-06-05 15:00 | CON ---
[address] [address] CONSULTATION Name: DOTTIE CROWLEY Room: [address] IN M.R.#: [id number] Admission: 06/04/21 Attend Phys: Claudy Zavala Discharge: Date of : 39 Report #: [id number] THIS REPORT FOR: cc: Carla Garsia Maggie M. DO Blick, David R. MD [facility] ~ cc: Carla Garsia DO DATE OF CONSULTATION: 06/05/2021 HISTORY OF PRESENT ILLNESS: The patient is an 85-year-old female whom I was asked to see in the hospital today because of her cardiac history. History is obtained from some old records. Unfortunately, the patient is very hard of hearing and there are no family members available. The patient has memory issues and is primarily in a wheelchair. She has a history of atrial fibrillation and has been anticoagulated in the past. She previously on Eliquis, which was discontinued because of anemia in the past. She was here at [facility] in April with fluid overload and weakness. She was placed back on Eliquis. She had a venous duplex scan that showed DVT. She required right thoracentesis for pleural effusion. The patient was placed on digoxin for an elevated rate of atrial fibrillation. She was sent home to skilled care. The family could not afford Eliquis. She has been undergoing therapy. She was brought to the hospital yesterday morning by paramedics. She apparently noticed blood coming out of her rectum. She denied any chest pain, shortness of breath, lightheadedness, palpitations. She has had no fever or cough. PAST MEDICAL AND SURGICAL HISTORY: She has had no major surgical procedures. She does have history of chronic kidney disease, chronic anemia. CURRENT MEDICATIONS: Apparently include digoxin, diltiazem, Lasix, potassium. ALLERGIES: She had no known drug allergies. FAMILY HISTORY: Negative for heart disease. SOCIAL HISTORY: She lives in [place]. No smoking, alcohol abuse. REVIEW OF SYSTEMS: No history of stroke, asthma, liver disease. She has chronic kidney disease, chronic lower extremity edema. No psychiatric illness. PHYSICAL EXAMINATION: GENERAL: Revealed elderly, frail-appearing female, lying in bed. She appeared in no acute distress. VITAL SIGNS: She had a blood pressure of 110/60, pulse is 60. She is afebrile. HEENT: She was anicteric. Conjunctivae pink[place] [address] CONSULTATION Name: DOTTIE CROWLEY Luis Angel Room: [address]#: [id number] Admission: 06/04/21 Attend Phys: Claudy Zavala Discharge: Date of : 39 Report #: [id number] NECK: Veins not appear distended. CHEST: Clear to auscultation. HEART: Irregular rhythm. No significant murmur. ABDOMEN: Soft. EXTREMITIES: Had trace edema. Dorsalis pedis pulse cannot be palpated. SKIN: Cool and dry. NEUROLOGIC: Nonfocal. LABORATORY DATA: Her ECG on admission showed atrial fibrillation with a slow ventricular response rate, nonspecific ST and T-wave changes. Her workup, she actually had an echocardiogram done last month of April that showed ejection fraction of 45%, left atrial enlargement, mild mitral and tricuspid insufficiency. Her chest x-ray in April showed small effusions. Normal heart size, tortuous aorta. Lab work, her sodium 145, creatinine 1.1. Normal liver function studies. High-sensitivity troponin 59. Her hemoglobin was 10.8, it was actually 7.3 in 2019. IMPRESSION AND RECOMMENDATIONS: 1. Atrial fibrillation. Rate noted to be slow. I would hold digoxin and diltiazem. The patient does not appear to be a very good candidate for anticoagulation. 2. Mild cardiomyopathy. 3. History of diastolic heart failure. 4. Gastrointestinal bleeding. The patient appears to have no cardiac contraindication to endoscopy. 5. History of deep venous thrombosis. 6. Anemia. 7. History of pleural effusion. The patient had thoracentesis last month. 8. Hard of hearing. <ELECTRONICALLY SIGNED> By: Luigi Napoles MD, FACC 06/05/21 1500 1134 [id number] Napoles MD, FACC /nt
[2021-06-06] VITALS (7 sets, daily range): BP systolic 93–148; BP diastolic 56–85
[2021-06-06 08:07] LABS: HEMATOCRIT 33.1 % (37.0-47.0); HEMOGLOBIN 10.8 gm/dL (12.0-15.0); MCH 29.7 pg (26.0-34.0); MCHC 32.8 g/dL (28.0-37.0); MCV 90.4 fL (80.0-100.0); MPV 7.9 fl. (7.2-11.1); RBC 3.66 mil/uL (4.20-5.00); RDW-CV 16.8 % (10.5-14.5)
[2021-06-06 08:12] LABS: PROTIME 11.2 Seconds (9.20-11.50)
[2021-06-06 08:21] LABS: INR 1.1
[2021-06-06 08:31] LABS: ALBUMIN 2.1 g/dL (3.4-5.0); CALCIUM 8.3 mg/dL (8.5-10.1); CREATININE 0.8 mg/dL (0.6-1.3); MAGNESIUM 2.1 mg/dL (1.8-2.4); POTASSIUM 3.4 mmol/L (3.5-5.1); TOTAL BILIRUBIN 0.6 mg/dL (<0.1-1.0)
[2021-06-07 03:18] VITALS: BP 93/49
[2021-06-07 04:06] LABS: ALBUMIN 1.9 g/dL (3.4-5.0); CALCIUM 7.8 mg/dL (8.5-10.1); CREATININE 0.7 mg/dL (0.6-1.3); HEMATOCRIT 31.8 % (37.0-47.0); HEMOGLOBIN 10.5 gm/dL (12.0-15.0); MAGNESIUM 2.5 mg/dL (1.8-2.4); MCH 29.8 pg (26.0-34.0); MCHC 33.1 g/dL (28.0-37.0); MPV 7.8 fl. (7.2-11.1); POTASSIUM 3.2 mmol/L (3.5-5.1); RBC 3.53 mil/uL (4.20-5.00); RDW-CV 16.2 % (10.5-14.5); TOTAL BILIRUBIN 0.3 mg/dL (<0.1-1.0); TOTAL PROTEIN 4.8 g/dL (6.4-8.2); WBC 8.9 thou/uL (4.0-11.0)
[2021-06-07 08:00] VITALS: BP 130/63
[2021-06-07 12:00] VITALS: BP 114/61
[2021-06-07 16:00] VITALS: BP 115/68
[2021-06-07 20:00] VITALS: BP 135/67
[2021-06-07 23:51] VITALS: BP 122/73
[2021-06-08 03:20] VITALS: BP 114/59
[2021-06-08 04:59] LABS: HEMATOCRIT 29.9 % (37.0-47.0); HEMOGLOBIN 10.1 gm/dL (12.0-15.0); MCH 30.1 pg (26.0-34.0); MCHC 33.6 g/dL (28.0-37.0); MCV 89.5 fL (80.0-100.0); MPV 7.7 fl. (7.2-11.1); RBC 3.34 mil/uL (4.20-5.00); RDW-CV 16.2 % (10.5-14.5); WBC 6.4 thou/uL (4.0-11.0)
[2021-06-08 05:09] LABS: INR 1.1
[2021-06-08 05:14] LABS: ALBUMIN 1.8 g/dL (3.4-5.0); CALCIUM 7.6 mg/dL (8.5-10.1); MAGNESIUM 2.4 mg/dL (1.8-2.4); POTASSIUM 3.6 mmol/L (3.5-5.1); TOTAL BILIRUBIN 0.3 mg/dL (<0.1-1.0); TOTAL PROTEIN 4.6 g/dL (6.4-8.2)
[2021-06-08 08:20] VITALS: BP 128/72
[2021-06-08 12:00] VITALS: BP 117/70
[2021-06-08 16:00] VITALS: BP 123/64
[2021-06-08 20:00] VITALS: BP 129/60
[2021-06-09] VITALS (7 sets, daily range): BP systolic 126–141; BP diastolic 62–76
[2021-06-09 05:49] LABS: ABSOLUTE LYMPHOCYTES 1.1 thou/uL (0.8-5.3); ABSOLUTE MONOCYTES 0.6 thou/uL (0.0-1.2); ABSOLUTE NEUTROPHILS 3.6 thou/uL (1.6-8.1); BASOPHILS 0.8 %; EOSINOPHILS 0.6 %; HEMATOCRIT 36.1 % (37.0-47.0); HEMOGLOBIN 11.8 gm/dL (12.0-15.0); LYMPHOCYTES 20.9 %; MCH 29.6 pg (26.0-34.0); MCHC 32.8 g/dL (28.0-37.0); MCV 90.1 fL (80.0-100.0); MONOCYTES 10.7 %; MPV 7.2 fl. (7.2-11.1); NUCLEATED RBCS 0 /100WBC; PLATELET COUNT* 202 thou/uL (150-400); RDW-CV 16.4 % (10.5-14.5); WBC 5.4 thou/uL (4.0-11.0)
[2021-06-09 06:08] LABS: PREALBUMIN 14.1 mg/dL (18.0-35.7)
[2021-06-09 06:14] LABS: ALBUMIN 2.1 g/dL (3.4-5.0); CALCIUM 8.2 mg/dL (8.5-10.1); CREATININE 0.6 mg/dL (0.6-1.3); MAGNESIUM 2.3 mg/dL (1.8-2.4); POTASSIUM 3.4 mmol/L (3.5-5.1); TOTAL BILIRUBIN 0.4 mg/dL (<0.1-1.0); TOTAL PROTEIN 5.3 g/dL (6.4-8.2)
[2021-06-09 07:18] LABS: ESR (SEDRATE) 30 mm/hr (0-30)
[2021-06-10] VITALS (7 sets, daily range): BP systolic 101–124; BP diastolic 48–67
[2021-06-11 00:55] VITALS: BP 1175/59
[2021-06-11 04:00] VITALS: BP 114/57
[2021-06-11 04:39] LABS: HEMATOCRIT 27.7 % (37.0-47.0); MCH 30.3 pg (26.0-34.0); MCHC 33.5 g/dL (28.0-37.0); MCV 90.4 fL (80.0-100.0); MPV 7.3 fl. (7.2-11.1); RBC 3.06 mil/uL (4.20-5.00); RDW-CV 16.8 % (10.5-14.5); WBC 5.8 thou/uL (4.0-11.0)
[2021-06-11 04:44] LABS: HEMOGLOBIN 9.3 gm/dL (12.0-15.0)
[2021-06-11 05:07] LABS: ALBUMIN 1.8 g/dL (3.4-5.0); CALCIUM 7.9 mg/dL (8.5-10.1); CREATININE 0.6 mg/dL (0.6-1.3); POTASSIUM 3.9 mmol/L (3.5-5.1); TOTAL BILIRUBIN 0.2 mg/dL (<0.1-1.0); TOTAL PROTEIN 4.6 g/dL (6.4-8.2)
[2021-06-11 07:53] VITALS: BP 97/54
[2021-06-11 12:48] VITALS: BP 105/52
[2021-06-11 15:56] VITALS: BP 109/51
[2021-06-11 20:00] VITALS: BP 118/59
[2021-06-12] VITALS: BP 109/61
[2021-06-12 04:00] VITALS: BP 124/55
[2021-06-12 08:00] VITALS: BP 112/61
[2021-06-12 11:28] LABS: HEMATOCRIT 30.5 % (37.0-47.0); HEMOGLOBIN 9.8 gm/dL (12.0-15.0); MCH 29.8 pg (26.0-34.0); MCHC 32.3 g/dL (28.0-37.0); MCV 92.1 fL (80.0-100.0); MPV 7.5 fl. (7.2-11.1); NUCLEATED RBCS 0 /100WBC; PLATELET COUNT* 198 thou/uL (150-400); RBC 3.31 mil/uL (4.20-5.00); RDW-CV 17.5 % (10.5-14.5); WBC 6.5 thou/uL (4.0-11.0)
[2021-06-12 11:37] LABS: CALCIUM 8.2 mg/dL (8.5-10.1); CREATININE 0.8 mg/dL (0.6-1.3); POTASSIUM 4.4 mmol/L (3.5-5.1); TOTAL BILIRUBIN 0.2 mg/dL (<0.1-1.0); TOTAL PROTEIN 4.5 g/dL (6.4-8.2)
--- NOTE | 2021-06-12 12:07 | PATH ---
[facility] [address] [place] [address] PATHOLOGY RPT PROCEDURE Name: SULEMA CROWLEY Room: [address] IN ..#: [id number] Admission: 06/04/21 Date of : 39 Discharge: Report #: [id number] Path Case #: [id number] [facility] Accession Number: [id number] . 01 Material submitted: . PART A: cecum - CECUM POLYP PART B: colon - SMALL PROXIMAL ASCENDING COLON POLYPS X3. Modifiers: proximal, ascending PART C: colon - MEDIUM PROXIMAL ASCENDING COLON POLYPS X2. Modifiers: proximal, ascending PART D: colon - LARGE PROXIMAL ASCENDING COLON POLYP. Modifiers: proximal, ascending PART E: colon - MID ASCENDING COLON POLYP. Modifiers: mid, ascending . 01 Clinical history: . EGD AND COLONOSCOPY RECTAL BLEEDING . 02 Diagnosis: A. Cecum polyp: - Tubular adenoma, negative for high grade dysplasia. . B. Small proximal ascending colon polyps (x3): - Three fragments of tubular adenomas, negative for high grade dysplasia. . C. Medium proximal ascending colon polyps x2: - Multiple fragments of tubular adenomas, negative for high grade dysplasia. . D. Large proximal ascending colon polyp: - Tubular adenoma, negative for high grade dysplasia. . E. Mid ascending colon polyp: - Tubular adenoma, negative for high grade dysplasia. . (MIRA:mm; 06/11/2021) [facility] 06/12/2021 1117 Local . 02 Electronically signed: . Alexis Soriano MD, Pathologist NPI- [id number] . 01 Gross description: . A. The specimen is received in formalin, labeled "Sulema Crowley, cecum polyp". Received are 5 segments of pale salcido tissue ranging in size from 0.3 to 0.5 cm in maximum dimensions. The specimen is submitted entirely in cassette [place] [address] PATHOLOGY RPT PROCEDURE Name: SULEMA CROWLEY Room: [address] IN [facility]#: [id number] Admission: 06/04/21 Date of : 39 Discharge: Report #: [id number] Path Case #: [id number] . B. The specimen is received in formalin, labeled "Sulema Crowley, 3X proximal ascending colon polys (small) ". The source is additionally listed on the requisition as "small proximal ascending colon polyps X3". Received are 2 segments of pale salcido tissue ranging in size from 0.3 to 0.4 cm in maximum dimensions. Upon careful inspection of the specimen container, no additional tissue is found. The specimen is submitted entirely in cassette B1. . C. The specimen is received in formalin, labeled "Sulema Crowley, 2X medium proximal ascending colon polyps". Received are multiple segments of light salcido to dark salcido tissue measuring 2.2 x 0.6 x 0.1 cm in aggregate dimensions. The specimen is filtered and entirely submitted in cassette C1. . D. The specimen is received in formalin, labeled "Sulema Crowley, large proximal ascending colon polyp". Received is a segment of light salcido to dark salcido tissue measuring 1.3 x 0.8 x 0.4 cm in greatest dimensions. The surgical margin is inked. The specimen is sectioned into 2 pieces and entirely submitted in cassette D1. . Also received within the specimen container are multiple segments of light salcido to dark salcido tissue admixed with vegetable material measuring 2.5 x 1.0 x 0.1 cm in aggregate dimensions. The specimen is filtered and entirely submitted in cassette D2. . E. The specimen is received in formalin, labeled "Sulema Crowley, mid ascending colon polyp". Received is a segment of pale salcido tissue measuring 0.5 cm in maximum dimensions. The specimen is submitted entirely in cassette E1.([facility]; 06/10/2021) [facility] 06/11/2021 1725 Local . 02 Pathologist provided ICD-10: D12.0, D12.2, K62.5 . 02 CPT . 180882, 117859, 284544, 533383, 264130 Specimen Comment: A courtesy copy of this report has been sent to [phone] Specimen Comment: [phone], Specimen Comment: Report sent to , DR ORTEGA / DR BOSWELL Performed at: [address], [place] [id number] MD Mike Griffin MD Phone: [phone] Performed at: 02 [facility] [address], [place], [place] [id number] MD Alexis Soriano MD Phone: [phone]
[2021-06-12 12:24] LABS: ABSOLUTE BASOPHILS 0.1 thou/uL (0.0-0.2); ABSOLUTE EOSINOPHILS 0.1 thou/uL (0.0-0.7); ABSOLUTE LYMPHOCYTES 1.8 thou/uL (0.8-5.3); ABSOLUTE MONOCYTES 0.8 thou/uL (0.0-1.2); ABSOLUTE NEUTROPHILS 3.6 thou/uL (1.6-8.1); PLATELET ESTIMATE ADEQUATE
[2021-06-12] MEDS ORDERED: XARELTO20 MG PO (13:14)
[2021-06-12 16:15] VITALS: BP 125/71
[2021-06-12 20:00] VITALS: BP 134/62
[2021-06-13] VITALS (8 sets, daily range): BP systolic 100–138; BP diastolic 44–79
[2021-06-14 01:30] VITALS: BP 108/60
[2021-06-14 04:58] LABS: ABSOLUTE BASOPHILS 0.1 thou/uL (0.0-0.2); ABSOLUTE EOSINOPHILS 0.1 thou/uL (0.0-0.7); ABSOLUTE LYMPHOCYTES 1.5 thou/uL (0.8-5.3); ABSOLUTE MONOCYTES 0.8 thou/uL (0.0-1.2); ABSOLUTE NEUTROPHILS 4.1 thou/uL (1.6-8.1); BASOPHILS 0.9 %; HEMATOCRIT 28.3 % (37.0-47.0); HEMOGLOBIN 9.3 gm/dL (12.0-15.0); MCH 30.1 pg (26.0-34.0); MCHC 32.9 g/dL (28.0-37.0); MCV 91.7 fL (80.0-100.0); MONOCYTES 12.1 %; MPV 7.1 fl. (7.2-11.1); NUCLEATED RBCS 0 /100WBC; PLATELET COUNT* 214 thou/uL (150-400); RBC 3.08 mil/uL (4.20-5.00); RDW-CV 17.6 % (10.5-14.5); WBC 6.5 thou/uL (4.0-11.0)
[2021-06-14 05:07] LABS: CALCIUM 8.1 mg/dL (8.5-10.1); CREATININE 0.6 mg/dL (0.6-1.3); POTASSIUM 3.9 mmol/L (3.5-5.1)
[2021-06-14 05:14] VITALS: BP 113/68
[2021-06-14 08:26] VITALS: BP 126/69
[2021-06-14 12:00] VITALS: BP 101/54
[2021-06-14 16:00] VITALS: BP 101/51
--- NOTE | 2021-06-22 16:49 | CON ---
[address] [address] CONSULTATION Name: CROWLEYDOTTIE K Room: [address] IN M.R.#: [id number] Admission: 06/04/21 Attend Phys: Claudy Zavala Discharge: 06/14/21 Date of : 39 Report #: [id number] THIS REPORT FOR: cc: Carla Garsia Maggie M. DO Namin, Farid M. MD ~ cc: Carla Garsia DO DATE OF CONSULTATION: 06/05/2021 Please note at the time of this dictation, the patient was seen and physically examined by myself. REASON FOR CONSULTATION: Possible GI bleed. HISTORY OF PRESENT ILLNESS: This is an 85-year-old female who was brought to the Emergency Room for painless rectal bleeding that they had noted since 3:00 a.m. of that morning by her daughter and son-in-law whom she lives with. When the patient was in the Emergency Room yesterday, she was noted to have a fecal impaction. They disimpacted her and did not notice any bright red blood or melanotic stool during the disimpaction. Apparently, during the night, when they were cleaning her up, she had some liquid with some bright red to darker blood noted fluid, but it was not coming from the anus, unclear if it was from vaginal or urethra due to incontinence. The patient underwent an EGD in 08/2019 that showed plaques in the esophagus for Olivia, medium size hiatal hernia. 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 The patient denies any nausea or vomiting or any abdominal discomfort. She is not a very good historian and is extremely hard of hearing. CT scan shows a large amount of stool throughout the entire colon. ALLERGIES: No known drug allergies. MEDICATIONS FROM HOME: Lasix, potassium, digoxin, and prednisone. It is unclear when she had her last colonoscopy. We do not have anything in our records and the patient is unable to tell me so. PAST MEDICAL HISTORY: Atrial fibrillation, chronic combined heart failure, DVT, chronic anemia, history of a PE. She has had a history of GI bleed in the past and is not on any anticoagulant therapy. However, her INR is elevated at 3.9 on admission. PAST SURGICAL HISTORY: [place] [address] CONSULTATION Name: DOTTIE CROWLEY Room: [address]#: [id number] Admission: 06/04/21 Attend Phys: Claudy Zavala Discharge: 06/14/21 Date of : 39 Report #: [id number] FAMILY HISTORY: Negative. SOCIAL HISTORY: She lives with her son, her daughter and son-in-law. Denies any alcohol, tobacco or illegal drug use. REVIEW OF SYSTEMS: Twelve-point review of systems is essentially negative except what is mentioned in the HPI. The patient had been on Eliquis back in 2019. PHYSICAL EXAMINATION: VITAL SIGNS: Temperature 36.3, pulse 75, respirations 20, blood pressure 113/57. HEART: Irregular rate and rhythm. LUNGS: Diminished. ABDOMEN: Soft, positive bowel sounds in all four quadrants, with no masses or tenderness noted. LABORATORY DATA: Hemoglobin 10.8, it is noted back in April of this year, she was 14-15, white count is 7.4, platelets 180. PT is 35, was 42 on admission. Creatinine is 1.1. Her LFTs are normal. Her GFR is 47. PT was 38.4, INR is 3.9 on admission and this morning, she is up to 4.5 and not on any anticoagulant therapy that is noted in her chart. Her troponin was high also at 59. CT scan showed a large amount of stool throughout her entire colon and rectum, questionable femoral vein thrombus and right lung densities noted. IMPRESSION: 1. Anemia. 2. Constipation with fecal impaction, has been disimpacted. 3. Prolonged INR. 4. Question nonsteroid antiinflammatory drug use. 5. Chronic kidney disease. PLAN: 1. Labs, iron, B12, ferritin. 2. Dulcolax suppository now 20 mg. 3. Dulcolax tablets 20 mg now. 4. We will look at an EGD and a colonoscopy to further evaluate her anemia once her INR returns back to baseline or normal. 5. Further recommendations to be made after Dr. Lomeli sees the patient later today. 6. Await Cardiology input [place] [address] CONSULTATION Name: DOTTIE CROWLEY Room: [address]#: [id number] Admission: 06/04/21 Attend Phys: Claudy Zavala Discharge: 06/14/21 Date of : 39 Report #: [id number] Thank you for allowing us to participate in this patient's care. Please do not hesitate to call with any questions regarding this consult. <ELECTRONICALLY SIGNED> By: Lidia Lomeli MD 06/22/21 1649 [id number] [id number] Lomeli MD /nt
== END 2021-06-14 21:30 | disposition home or self-care (01) | DRG 377 ==
LOC: M.ERS 09:03 → M.TBA-ER 13:41 → M.2W 13:41
PROVIDERS: Emergency Medicine; Family Medicine; Internal Medicine; Nurse Practitioner Adult Health; ADMIT Internal Medicine; ATTEND Internal Medicine
PROC: 0DBK8ZZ Excision of Ascending Colon, Via Natural or Artificial Opening Endoscopic (ICD-10-PCS; principal; 2021-06-09)
PROC: 0DJ08ZZ Inspection of Upper Intestinal Tract, Via Natural or Artificial Opening Endoscopic (ICD-10-PCS; principal; 2021-06-09)
PROC: 0DBH8ZZ Excision of Cecum, Via Natural or Artificial Opening Endoscopic (ICD-10-PCS; principal; 2021-06-09)
PROC: 0DBL8ZZ Excision of Transverse Colon, Via Natural or Artificial Opening Endoscopic (ICD-10-PCS; 2021-06-09)
DX: K57.31 Diverticulosis of large intestine without perforation or abscess with bleeding (principal); N17.0 Acute kidney failure with tubular necrosis; I50.42 Chronic combined systolic (congestive) and diastolic (congestive) heart failure; I42.9 Cardiomyopathy, unspecified; J91.8 Pleural effusion in other conditions classified elsewhere; I48.20 Chronic atrial fibrillation, unspecified; N39.0 Urinary tract infection, site not specified; I13.0 Hypertensive heart and chronic kidney disease with heart failure and stage 1 through stage 4 chronic kidney disease, or unspecified chronic kidney disease; K62.5 Hemorrhage of anus and rectum; D64.9 Anemia, unspecified; K59.00 Constipation, unspecified; D12.2 Benign neoplasm of ascending colon; D12.0 Benign neoplasm of cecum; D12.3 Benign neoplasm of transverse colon; N18.9 Chronic kidney disease, unspecified; B96.89 Other specified bacterial agents as the cause of diseases classified elsewhere; K64.4 Residual hemorrhoidal skin tags; L89.159 Pressure ulcer of sacral region, unspecified stage; Z20.822 Contact with and (suspected) exposure to COVID-19; Z86.718 Personal history of other venous thrombosis and embolism; Z86.711 Personal history of pulmonary embolism; Z79.899 Other long term (current) drug therapy